=== PATIENT | female | born 1945 | race Caucasian/White ===

== ENCOUNTER 2022-03-21 15:17 | Emergency (ER) | payer MEDICARE, OTHER, SELFPAY ==
--- NOTE | ~2022-03-21 | XR_ITS ---
EXAMINATION: XR CHEST CLINICAL INFORMATION: Shortness of breath. COVID positive COMPARISON: CT 08/01/2014 TECHNIQUE: AP upright portable view of the chest was obtained. FINDINGS: No focal pneumonia. Normal lung volumes. Mild nonspecific bronchial wall thickening. Heart and mediastinum within normal limits with minor aortic ectasia and atherosclerotic disease. No pulmonary edema. Nonobstructive gas pattern. Postsurgical changes in the left chest wall with mastectomy for breast cancer. XR/XR chest 1V IMPRESSION: Minor bronchial wall thickening. No focal pneumonia.
[2022-03-21 15:21] VITALS: BP 151/67; PULSE 64; O2SAT 100
[2022-03-21 15:32] VITALS: BP 193/74; PULSE 55; RESP 16; TEMP 36.9; O2SAT 100; BMI 25.3
[2022-03-21 16:01] LABS: COVID-19 Test Negative (Negative); IDNOW Serial# 16C4AD1C
--- NOTE | 2022-03-21 16:21 | ED.GENADULT ---
HPI - General Adult General Chief complaint: General Medical Stated complaint: WEAKNESS, COVID + Time Seen by Provider: 03/21/22 16:09 Source: patient and family Mode of arrival: ambulatory Limitations: no limitations History of Present Illness HPI narrative: 76-year-old female with several days worth of feeling generally weak. Believes that she has COVID. Patient states she has been unable to eat or drink anything for the past several days including medications. She denies any fevers or chills. The patient does state that her daughter and son-in-law had COVID and she was with them last weekend. She denies chest pain, cough, wheezing or any other specific complaints. Onset (ago): day(s) Severity: moderate Related Data Home Medications Medication Instructions Recorded Confirmed amlodipine 10 mg tablet 1 tab PO DAILY 03/22/22 atorvastatin 40 mg tablet 1 tab PO DAILY 03/22/22 gabapentin 300 mg capsule 1 cap PO TID 03/22/22 insulin aspart U-100 100 unit/mL subcut 03/22/22 subcutaneous solution (Novolog U-100 Insulin aspart) insulin glargine 100 unit/mL unit subcut 03/22/22 subcutaneous solution (Lantus U-100 Insulin) lisinopril 40 mg tablet 1 tab PO DAILY 03/22/22 trazodone 150 mg tablet 1 tab PO BEDTIME 03/22/22 Allergies Allergy/AdvReac Type Severity Reaction Status Date / Time influenza virus vaccine, Allergy Unknown PASSED OUT Unverified 01/12/20 14:44 specific [Influenza Virus Vacc,Specific] Penicillins [PENICILLINS] Allergy Unknown TURNED RED Unverified 01/12/20 14:44 A BEAT eggs Allergy Unknown Fainting Uncoded 03/21/22 15:37 Penicillin Allergy Unknown Redness of Uncoded 03/21/22 15:37 Skin Review of Systems Constitutional: Constitutional: Reports anorexia, Denies chills, Denies fever(s) and Reports weakness Eyes: Eyes: Denies diplopia and Denies eye discharge ENT: Reports system reviewed and no additional complaints, except as documented, Denies nasal congestion and Denies sore throat Cardiovascular: Cardiovascular: Denies syncope, Denies Loss of Consciousness, Denies palpitations and Denies dyspnea Respiratory: Respiratory: Reports no additional respiratory complaints and Denies dyspnea Gastrointestinal: Gastrointestinal: Reports no additional gastrointestinal complaints, Reports nausea and Denies vomiting Genitourinary: Genitourinary: Reports no additional female genitourinary complaints Musculoskeletal: Musculoskeletal: Reports no additional musculoskeletal complaints Integumentary/Breasts: Skin/Breast: Reports system reviewed and no additional complaints, except as docu and Denies jaundice Neurologic: Denies Abnormal speech present, Denies syncope, Denies Sensory deficit (Neuro) and Reports weakness Endocrine: Endocrine: Denies palpitations [facility] Past Medical History Attestation statement: The following information was validated with the patient. [facility] Narrative: Diabetes Source: old records reviewed and nursing notes reviewed Social History Social History Advance Directives: Yes Advance Directives Information Provided: No Advance Directives on File: No Physical Exam ED Vital Signs: Vital Signs - 24 hr 03/21/22 15:32 03/21/22 20:27 03/21/22 23:46 Temperature 98.4 F 98.6 F 98.0 F Pulse Rate 55 60 85 Respiratory Rate 16 16 Blood Pressure 193/74 H 164/52 H 167/70 H Pulse Oximetry 100 95 96 Oxygen Delivery Method Room Air Room Air Room Air 03/22/22 00:38 03/22/22 02:14 03/22/22 04:10 Temperature 97.2 F 98.0 F 970 F H Pulse Rate 59 68 71 Respiratory Rate 14 17 16 Blood Pressure 121/69 131/76 124/69 Pulse Oximetry 96 95 95 Oxygen Delivery Method Room Air Room Air Room Air BMI result Body Mass Index 25.3 Vital signs noted. Pulse oximeter is normal. Afebrile. Const General: cooperative, comfortable, alert, awake and in distress mild; No diaphoretic Nutritional Appearance: average body habitus Orientation/consciousness: patient oriented x3 Limitations: no limitations [facility] Head: Yes normal to inspection, Yes normocephalic and Yes atraumatic Ears: hearing grossly normal bilaterally General nose exam: Normal external nose present Face and sinus: Yes normal facial exam Mouth: Normal oral and palatal mucosa present Eyes General: appearance normal, both eyes and all related structures Conjunctivae: conjunctivae normal Sclerae: sclerae normal Pupils: Equal, round and reactive pupils present EOM: EOMs intact bilaterally Neck Neck: Yes normal visual inspection and Yes full ROM Resp Effort & Inspection: normal respiratory effort, normal respiratory pattern and no cough Cardio Rate: regular rate Rhythm: regular rhythm GI Inspection: Yes normal to inspection, No Abdominal wall edema and No distended Palpation (GI): not soft and nontender Back/Spine/Pelvis Cervical Spine: normal cervical lordosis and cervical ROM normal Skin General skin exam: no rashes or lesions noted, no jaundice and no pallor Neuro General: patient oriented x3 and CN's II-XI intact bilaterally Cranial nerves: Yes Equal, round and reactive pupils present Cognition (Neuro): normal cognition Speech: No Abnormal speech present Motor exam (neuro): 5/5 motor strength present throughout Sensory Exam: No Sensory deficit (Neuro) Medications Administered Discontinued Medications Generic Name Dose Route Start Last Admin Trade Name Freq PRN Reason Stop Dose Admin Sodium Chloride 1,000 mls @ 1,000 mls/hr 03/21/22 16:21 03/21/22 23:24 Ns IV 03/21/22 17:20 Infused .Q1H ONE Infusion Ondansetron HCl 4 mg 03/21/22 16:49 03/21/22 17:35 Ondansetron Hcl 4 Mg/2 Ml Vial IVPUSH 03/21/22 16:50 4 mg ONCE ONE Administration Medical Decision Making MDM Narrative Medical decision making narrative: 76-year-old female presenting with generalized weakness. The patient states she has been nauseous. Laboratory studies were performed all of which are documented below. The patient was given IV fluids, and nausea medication. She continues to feel weak. There does not appear to be any cause for admission at this time, however, the patient is 76 and is weak, so will be observed overnight in the emergency department and have a case management and physical therapy evaluation in the morning to determine whether she is safe to go home. Lab Data Lab results narrative: The patient is slightly anemic although may be normal for her age, no old values for are available for comparison. Additionally, the patient has a slightly decreased white count, possibly secondary to viral infection. COVID testing was negative Result diagrams: 03/21/22 17:06 03/21/22 17:06 Labs: Lab Results 03/21/22 03/21/22 03/21/22 Range/Units 15:39 17:06 17:06 WBC 2.2 L (4.8-10.8) X10*3/uL RBC 3.81 L (4.20-5.50) X10*6/uL Hgb 11.3 L (12.0-16.0) g/dl Hct 32.0 L (37.0-47.0) % MCV 84.0 (80.0-98.0) fL MCH 29.7 (27.0-33.0) pg MCHC 35.3 H (31.0-35.0) g/dl RDW 12.1 (11.0-16.0) % Plt Count 157 L (160-400) X10*3/uL MPV 11.1 (9.4-12.3) fL Immature Gran % (Auto) 0.5 H (0.0-0.4) % Neut % (Auto) 49.5 (45-73) % Lymph % (Auto) 33.0 (20-40) % [place] % (Auto) 15.6 H (2-11) % Eos % (Auto) 0.5 (0-4) % Baso % (Auto) 0.9 (0-2) % Lymph # (Auto) 0.7 L (1.2-4.9) X10*3/uL [place] # (Auto) 0.3 (0.1-1.2) X10*3/uL Eos # (Auto) 0.0 (0.0-0.4) X10*3/uL Baso # (Auto) 0.0 (0.0-0.2) X10*3/uL Abs Immat Gran (auto) 0.01 (0.00-0.03) X10*3/uL Absolute Neuts (auto) 1.1 L (2.0-8.3) x10*3/uL Absolute Nucleated RBC 0.000 (0.0-0.012) X10*3/uL Nucleated RBC % (auto) 0.0 (0.0-0.2) /100WBC Smear Tech's Comments VERIFIED Sodium 137 (135-145) mmol/L Potassium 4.2 (3.3-5.1) mmol/L Chloride 102 (96-108) mmol/L Carbon Dioxide 25 (22-29) mmol/L Anion Gap 14 (12-20) BUN 20 H (9-16) mg/dL Creatinine 1.18 (0.5-1.4) mg/dL Estim Creat Clear Calc 40.4 Estimated GFR 44 Random Glucose 215 H (60-115) mg/dL Calcium 8.6 (8.4-10.2) mg/dL COVID-19 ([facility]) Negative (Negative) COVID-19 Clin Com See Note Imaging Data Chest x-ray: Radiologist's impression: Minimal bronchial thickening, no acute infiltrates Discharge Plan Discharge Clinical Impression: Weakness Patient Disposition: Still a Patient Prescriptions: No Action atorvastatin 40 mg tablet 1 tab PO DAILY insulin glargine [Lantus U-100 Insulin] 100 unit/mL solution subcut amlodipine 10 mg tablet 1 tab PO DAILY insulin aspart U-100 [Novolog U-100 Insulin aspart] 100 unit/mL solution subcut trazodone 150 mg tablet 1 tab PO BEDTIME gabapentin 300 mg capsule 1 cap PO TID lisinopril 40 mg tablet 1 tab PO DAILY
[2022-03-21 17:31] LABS: Anion Gap 14 (12-20); Blood Urea Nitrogen 20 mg/dL (9-16); Calcium 8.6 mg/dL (8.4-10.2); Carbon Dioxide 25 mmol/L (22-29); Chloride 102 mmol/L (96-108); Creatinine Clr Calc Pharmacy 40.4; Estimated Glomerular Filt Rate 44; Glucose Random 215 mg/dL (60-115); Potassium 4.2 mmol/L (3.3-5.1); Sodium 137 mmol/L (135-145)
[2022-03-21] MEDS: ondansetron HCL 4 MG/2 ML VIAL IVPUSH (17:35)
[2022-03-21] MEDS: 0.9 % Sodium Chloride 1,000 ML 1000 ML IV (17:36)
--- NOTE | 2022-03-21 17:36 | PC.NURSE ---
Normal Saline 0.9% would not scan. Unknown reason. NS 0.9% infusing as ordered in [facility].
[2022-03-21 17:38] LABS: Basophils Percent Auto 0.9 % (0-2); Eosinophils Percent Auto 0.5 % (0-4); Hemoglobin 11.3 g/dl (12.0-16.0); Imm Gran Abs Auto 0.01 X10*3/uL (0.00-0.03); Imm Gran Pct Auto 0.5 % (0.0-0.4); Lymphocytes Absolute Auto 0.7 X10*3/uL (1.2-4.9); MANUAL DIFF FLAG SCAN; Mean Corpuscular HGB Conc 35.3 g/dl (31.0-35.0); Mean Corpuscular Hemoglobin 29.7 pg (27.0-33.0); Mean Platelet Volume 11.1 fL (9.4-12.3); Monocytes Absolute Auto 0.3 X10*3/uL (0.1-1.2); Monocytes Percent Auto 15.6 % (2-11); Neutrophils Absolute Auto 1.1 x10*3/uL (2.0-8.3); Neutrophils Percent Auto 49.5 % (45-73); Platelet Count 157 X10*3/uL (160-400); Red Blood Count 3.81 X10*6/uL (4.20-5.50); Red Cell Distribution Width 12.1 % (11.0-16.0); SCAN SMEAR FLAG 1
[2022-03-21 17:40] LABS: White Blood Count 2.2 X10*3/uL (4.8-10.8)
[2022-03-21 17:57] LABS: SLIDE REVIEW VERIFIED
[2022-03-21 20:27] VITALS: BP 164/52; PULSE 60; TEMP 37; O2SAT 95
[2022-03-21 23:46] VITALS: BP 167/70; PULSE 85; RESP 16; TEMP 36.7; O2SAT 96
[2022-03-22 00:38] VITALS: BP 121/69; PULSE 59; RESP 14; TEMP 36.2; O2SAT 96
[2022-03-22 02:14] VITALS: BP 131/76; PULSE 68; RESP 17; TEMP 36.7; O2SAT 95
[2022-03-22 04:10] VITALS: BP 124/69; PULSE 71; RESP 16; TEMP 521.1; TEMP 970; O2SAT 95
--- NOTE | 2022-03-22 07:44 | PC.NURSE ---
pt is sitting up eating breakfast rn aware
--- NOTE | 2022-03-22 08:13 | PC.NURSE ---
spoke with pts daughter who reports she and her normally keep an eye on her mother. pts daughter reports that she and her are currently covid + and it would be hard for them to go care for the pt. Daughter (Zaida) [phone]
[2022-03-22 08:32] VITALS: TEMP 36.1
[2022-03-22 09:03] VITALS: BP 124/69; PULSE 71; O2SAT 95
--- NOTE | 2022-03-22 09:11 | PHA.MEDREC ---
Pharmacy Consult ? Medication Reconciliation Pharmacy has completed the medication reconciliation. Patient was able to confirm medications based on claim history but she states she has not taken her medications at home in over a week because she's been sick. She also has not used her insulin in this time period according to her.
[2022-03-22 10:27] LABS: Influenza A PCR NEGATIVE (Negative); Influenza B PCR NEGATIVE (Negative); Resp Syncy Virus RNA Qual PCR NEGATIVE (Negative); SARS COV2 PCR INHOUSE POSITIVE (Negative)
--- NOTE | 2022-03-22 11:04 | MHC.CM.ED ---
Received case management consult overnight. Patient came to the ER due to weakness from Covid. Work up negative except for positive Covid. Physical therapy eval completed. No therapies indicated at this time. Met with patient in regards to discharge planning. Patient lives alone, ambulates independently and had no services prior to coming to the hospital. PCP is at [facility]. Patient feels she can safely return home, even though her family has Covid and will not be able to help her at home. Spoke with patient's daughter, Zaida via telephone at [phone]. Physical therapy findings and clinical findings explained. Also explained patient feels she can safely return home. Zaida requesting patient be sent home with antiemetic due to nausea/vomiting. Joselyn HERRERA aware. Patient appeared short of breath. Faustina MORGAN has been asked to check patient's O2 sat. If normal, anticipate patient will return home via BLS. Ezra, head gauge unit operator has Med [facility] and will book BLS when reeady for discharge. Continue to monitor for d/c needs.
[2022-03-22 11:08] VITALS: BP 194/72; PULSE 61; RESP 18; O2SAT 96
== END 2022-03-22 11:46 | disposition home or self-care (01) ==
PROVIDERS: Emergency Provider Emergency Medicine; PCP Internal Medicine
DX: U07.1 COVID-19 (principal); R53.1 Weakness; Z79.4 Long term (current) use of insulin; Z79.02 Long term (current) use of antithrombotics/antiplatelets; Z79.899 Other long term (current) drug therapy
CPT/HCPCS: 0241U; 36415; 71045; 80048; 85025; 87635; 96361; 96374; 97161; 99284; 99285; J2405

== ENCOUNTER 2023-04-18 08:08 | Emergency (ER) | payer MEDICARE, OTHER, SELFPAY ==
[2023-04-18 08:16] VITALS: BP 138/68; BP 155/61; PULSE 58; PULSE 63; RESP 16; TEMP 36.9; O2SAT 100; BMI 25.2
[2023-04-18 08:28] LABS: Glucose, Whole Blood 302 mg/dL (60-115)
--- NOTE | 2023-04-18 08:33 | ED_ITS ---
HPI - General Adult General Chief complaint: General Medical Stated complaint: HYPERGLYCEMIA Time Seen by Provider: 04/18/23 08:13 Source: patient, family and EMS Mode of arrival: EMS Limitations: no limitations History of Present Illness HPI narrative: 77-year-old female with a history of insulin-dependent diabetes, hypertension, hyperlipidemia presents to the ER with poor p.o. intake, no appetite, refusing to take home medications since yesterday morning. Per partner at the bedside the patient has a history of doing this. This is the anniversary of her 1st 's and she has some depression. She is not currently taking any medications for depression. She has in the past but is unsure if this was helpful. She does not have a therapist. She has had one in the past. She denies any SI or HI. Related Data Home Medications Medication Instructions Recorded Confirmed amlodipine 10 mg tablet 10 mg PO DAILY 03/22/22 03/22/22 ascorbic acid (vitamin C) 500 mg 500 mg PO DAILY 03/22/22 03/22/22 tablet (Vitamin C) atorvastatin 40 mg tablet 40 mg PO DAILY 03/22/22 03/22/22 cholecalciferol (vitamin D3) 25 25 mcg PO DAILY 03/22/22 03/22/22 mcg (1,000 unit) capsule (Vitamin D3) gabapentin 300 mg capsule 900 mg PO BEDTIME 03/22/22 03/22/22 insulin aspart U-100 100 unit/mL 1 sliding scale dose subcut TID 03/22/22 03/22/22 subcutaneous solution (Novolog U-100 Insulin aspart) insulin glargine 100 unit/mL 18 unit subcut BEDTIME 03/22/22 03/22/22 subcutaneous solution (Lantus U-100 Insulin) lisinopril 40 mg tablet 40 mg PO DAILY 03/22/22 03/22/22 trazodone 150 mg tablet 150 mg PO BEDTIME 03/22/22 03/22/22 vitamin E 268 mg (400 unit) capsule 268 mg PO DAILY 03/22/22 03/22/22 Previous Rx's Medication Instructions Recorded ondansetron 4 mg disintegrating 4 mg PO Q8H 3 days #9 tabs 03/22/22 tablet Allergies Allergy/AdvReac Type Severity Reaction Status Date / Time influenza virus vaccine, Allergy Unknown PASSED OUT Unverified 01/12/20 14:44 specific [Influenza Virus Vacc,Specific] Penicillins [PENICILLINS] Allergy Unknown TURNED RED Unverified 01/12/20 14:44 A BEAT eggs Allergy Unknown Fainting Uncoded 03/21/22 15:37 Penicillin Allergy Unknown Redness of Uncoded 03/21/22 15:37 Skin Review of Systems 2 Review of Systems: Yes all other systems are reviewed and are negative Constitutional: Constitutional: Reports no additional constitutional complaints, Denies body ache(s), Denies chills, Denies fever(s), Denies headache(s), Reports poor appetite and Denies weakness Eyes: Eyes: Reports no additional eye complaints and Denies change in vision ENT: Reports system reviewed and no additional complaints, except as documented, Denies dizziness, Denies headache(s), Denies nasal congestion, Denies nasal discharge and Denies neck pain Cardiovascular: Cardiovascular: Reports no additional cardiovascular complaints, Denies chest pain, Denies leg edema and Denies dyspnea Respiratory: Respiratory: Reports no additional respiratory complaints, Denies cough and Denies dyspnea Gastrointestinal: Gastrointestinal: Reports no additional gastrointestinal complaints, Denies abdominal pain, Denies diarrhea, Denies nausea and Denies vomiting Genitourinary: Genitourinary: Reports no additional female genitourinary complaints and Denies urinary incontinence Musculoskeletal: Musculoskeletal: Reports no additional musculoskeletal complaints, Denies back pain, Denies arthralgias, Denies joint swelling, Denies neck pain, Denies numbness and Denies tingling Integumentary/Breasts: Skin/Breast: Reports system reviewed and no additional complaints, except as docu and Denies rash Neurologic: Reports system reviewed and no additional complaints, except as documented, Denies Abnormal speech present, Denies dizziness, Denies headache(s), Denies numbness, Denies tingling and Denies weakness Psychiatric: Psychiatric: Reports depression, Denies homicidal ideation and Denies suicidal ideation [facility] Past Medical History Attestation statement: The following information was validated with the patient. Source: old records reviewed Social History Social History Smoked in Last 30 Days: No Use of substances other than those prescribed or required for medical reasons: No Advance Directives: No Advance Directives Information Provided: No Physical Exam ED Vital Signs: Vital Signs - 24 hr 04/18/23 08:16 04/18/23 11:27 04/18/23 14:08 Temperature 98.4 F 97.8 F 98.1 F Pulse Rate 58 58 64 Respiratory Rate 16 20 14 Blood Pressure 155/61 H 126/63 144/65 H Pulse Oximetry 100 99 98 Oxygen Delivery Method Room Air Room Air Room Air BMI result Body Mass Index 25.2 Const Other: Tearful, flat affect General: alert Orientation/consciousness: patient oriented x3 Limitations: no limitations HENMT Head: Yes normal to inspection Ears: hearing grossly normal bilaterally General nose exam: Normal external nose present Face and sinus: Yes normal facial exam Mouth: Normal oral and palatal mucosa present Throat: Yes posterior oropharynx normal Eyes General: appearance normal, both eyes and all related structures Pupils: Equal, round and reactive pupils present Neck Neck: Yes normal visual inspection Chest Chest palpation & inspection: normal inspection of the chest Resp Effort & Inspection: normal respiratory effort Auscultation: clear to auscultation bilaterally Cardio Rate: regular rate Rhythm: regular rhythm Peripheral pulses: Peripheral pulses 2+ throughout GI Inspection: Yes normal to inspection Palpation (GI): Soft to palpation and nontender Auscultation: normal bowel sounds Back/Spine/Pelvis Thoracic/Lumbar Spine: thoracic and lumbar spine normal to inspection Skin General skin exam: no rashes or lesions noted Neuro General: patient oriented x3, no focal motor deficits and normal sensation to monofilament Cranial nerves: Yes Equal, round and reactive pupils present Cognition (Neuro): normal cognition Speech: No Abnormal speech present Gait exam (Neuro): Normal gait present Motor exam (neuro): 5/5 motor strength present throughout Extrem General: Yes normal to inspection Course Course Course Narrative: 2124-Labs show mild SOLITARIO, hyperglycemia. Will give 1 L IVF, SQ insulin Reevaluation(s) Reevaluation #1: 1045-Will repeat BMP. SOLITARIO likely pre-renal. Patient did take some PO while in the ER. At this time she is medically cleared for crisis consultation. Reevaluation #2: 1430-repeat BMP improving. Patient can continue to orally rehydrate. I did speak to the patient and her . Unfortunately the care team is not available to see her until 21:00 tonight. The patient is not suicidal. There are no safety concerns from family. She is agreeing to take all of her home medications at home. Family feels comfortable going home with outpatient resources and will return with her there are any safety concerns. Medications Administered Discontinued Medications Generic Name Dose Route Start Last Admin Trade Name Mary Beth PRN Reason Stop Dose Admin Sodium Chloride 1,000 mls @ 999 mls/hr 04/18/23 09:22 04/18/23 10:29 Ns IV 04/18/23 10:22 1,000 mls/hr .Q1H1M STA Infusion Insulin Human Lispro 8 unit 04/18/23 09:23 04/18/23 09:31 Insulin Lispro 100 Unit/Ml 3 Ml Vial SUBCUT 04/18/23 09:24 8 unit ONCE ONE Administration Ondansetron HCl 4 mg 04/18/23 13:10 04/18/23 13:29 Ondansetron Odt 4 Mg Tab.Rapdis TRANSLINGU 04/18/23 13:11 4 mg ONCE ONE Administration Medical Decision Making Medical Decision Making [facility] Narrative: 77-year-old female with a history of insulin-dependent diabetes, hypertension, hyperlipidemia presents to the ER with poor p.o. intake, no appetite, refusing to take home medications since yesterday morning.? Per partner at the bedside the patient has a history of doing this.? This is the anniversary of her 1st 's and she has some depression.? She is not currently taking any medications for depression.? She has in the past but is unsure if this was helpful.? She does not have a therapist.? She has had one in the past.? She denies any SI or HI. Tearful, flat affect POC is 302. Will obtain labs, UA, COVID screen. Will need crisis consultation Differential Diagnosis Differential Diagnoses: The differential diagnosis associated with the presentation includes Depression, non med compliant Admission/Observation Consideration of admission/observation: Escalation of care including admission/observation considered There is no SI or HI or safety concerns from family that I believe necessitates a section 12 or an inpatient psych admission. Lab Data [facility] Lab Attestation statement: I reviewed the patient's lab results. 04/18/23 08:42 04/18/23 10:48 Labs: Lab Results 04/18/23 04/18/23 04/18/23 Range/Units 08:24 08:42 10:29 WBC 4.0 L (4.8-10.8) X10*3/uL RBC 4.51 (4.20-5.50) X10*6/uL Hgb 13.5 (12.0-16.0) g/dl Hct 40.5 D (37.0-47.0) % MCV 89.8 (80.0-98.0) fL MCH 29.9 (27.0-33.0) pg MCHC 33.3 (31.0-35.0) g/dl RDW 12.6 (11.0-16.0) % Plt Count 232 D (160-400) X10*3/uL MPV 11.1 (9.4-12.3) fL Immature Gran % (Auto) 0.2 (0.0-0.4) % Neut % (Auto) 64.7 (45-73) % Lymph % (Auto) 21.2 (20-40) % [place] % (Auto) 10.2 (2-11) % Eos % (Auto) 2.7 (0-4) % Baso % (Auto) 1.0 (0-2) % Lymph # (Auto) 0.9 L (1.2-4.9) X10*3/uL [place] # (Auto) 0.4 (0.1-1.2) X10*3/uL Eos # (Auto) 0.1 (0.0-0.4) X10*3/uL Baso # (Auto) 0.0 (0.0-0.2) X10*3/uL Abs Immat Gran (auto) 0.01 (0.00-0.03) X10*3/uL Absolute Neuts (auto) 2.6 (2.0-8.3) x10*3/uL Absolute Nucleated RBC 0.000 (0.0-0.012) X10*3/uL Nucleated RBC % (auto) 0.0 (0.0-0.2) /100WBC Sodium 140 (135-145) mmol/L Potassium 3.8 (3.3-5.1) mmol/L Chloride 105 (96-108) mmol/L Carbon Dioxide 24 (22-29) mmol/L Anion Gap 15 (12-20) BUN 32 H (9-16) mg/dL Creatinine 1.79 H (0.5-1.4) mg/dL Estim Creat Clear Calc 24.2 Estimated GFR 27 POC Glucose 302 H (60-115) mg/dL Random Glucose 336 H (60-115) mg/dL Calcium 10.2 D (8.4-10.2) mg/dL Urine Color Yellow Urine Appearance Clear Urine pH 8.5 (5.0-9.0) Ur Specific [place] 1.020 (1.005-1.025) Urine Protein Negative (Neg-Trace) mg/dL Urine Glucose (UA) >=1000 H (Negative) mg/dL Urine Ketones Negative (Negative) mg/dL Urine Blood Negative (Negative) Urine Nitrite Negative (Negative) Ur Leukocyte Esterase Negative (Negative) Urine RBC 0-2 (0-2) /HPF Urine WBC 0-5 (0-5) /HPF Ur Squamous Epith Cells 0-2 (0-2) /HPF Urine Bacteria None Seen (None Seen) Hyaline Casts 0-2 (0-2) /LPF Salicylates < 5.0 L (15-30) mg/dL Urine Opiates Screen Not Detected (Not Detect) Urine Fentanyl Screen Not Detected (Not Detect) Acetaminophen < 3 (<30) mcg/mL Ur Barbiturates Screen Not Detected (Not Detect) Ur Phencyclidine Scrn Not Detected (Not Detect) Ur Amphetamines Screen Not Detected (Not Detect) U Benzodiazepines Scrn Not Detected (Not Detect) Urine Cocaine Screen Not Detected (Not Detect) U Marijuana (THC) Screen Not Detected (Not Detect) Ethyl Alcohol < 10 mg/dL COVID-19 ([facility]) Negative (Negative) COVID-19 Clin Com See Note 04/18/23 Range/Units 10:48 WBC (4.8-10.8) X10*3/uL RBC (4.20-5.50) X10*6/uL Hgb (12.0-16.0) g/dl Hct (37.0-47.0) % MCV (80.0-98.0) fL MCH (27.0-33.0) pg MCHC (31.0-35.0) g/dl RDW (11.0-16.0) % Plt Count (160-400) X10*3/uL MPV (9.4-12.3) fL Immature Gran % (Auto) (0.0-0.4) % Neut % (Auto) (45-73) % Lymph % (Auto) (20-40) % [place] % (Auto) (2-11) % Eos % (Auto) (0-4) % Baso % (Auto) (0-2) % Lymph # (Auto) (1.2-4.9) X10*3/uL [place] # (Auto) (0.1-1.2) X10*3/uL Eos # (Auto) (0.0-0.4) X10*3/uL Baso # (Auto) (0.0-0.2) X10*3/uL Abs Immat Gran (auto) (0.00-0.03) X10*3/uL Absolute Neuts (auto) (2.0-8.3) x10*3/uL Absolute Nucleated RBC (0.0-0.012) X10*3/uL Nucleated RBC % (auto) (0.0-0.2) /100WBC Sodium 141 (135-145) mmol/L Potassium 3.6 (3.3-5.1) mmol/L Chloride 108 (96-108) mmol/L Carbon Dioxide 24 (22-29) mmol/L Anion Gap 13 (12-20) BUN 29 H (9-16) mg/dL Creatinine 1.60 H (0.5-1.4) mg/dL Estim Creat Clear Calc 27.1 Estimated GFR 31 POC Glucose (60-115) mg/dL Random Glucose 250 H (60-115) mg/dL Calcium 9.4 D (8.4-10.2) mg/dL Urine Color Urine Appearance Urine pH (5.0-9.0) Ur Specific [place] (1.005-1.025) Urine Protein (Neg-Trace) mg/dL Urine Glucose (UA) (Negative) mg/dL Urine Ketones (Negative) mg/dL Urine Blood (Negative) Urine Nitrite (Negative) Ur Leukocyte Esterase (Negative) Urine RBC (0-2) /HPF Urine WBC (0-5) /HPF Ur Squamous Epith Cells (0-2) /HPF Urine Bacteria (None Seen) Hyaline Casts (0-2) /LPF Salicylates (15-30) mg/dL Urine Opiates Screen (Not Detect) Urine Fentanyl Screen (Not Detect) Acetaminophen (<30) mcg/mL Ur Barbiturates Screen (Not Detect) Ur Phencyclidine Scrn (Not Detect) Ur Amphetamines Screen (Not Detect) U Benzodiazepines Scrn (Not Detect) Urine Cocaine Screen (Not Detect) U Marijuana (THC) Screen (Not Detect) Ethyl Alcohol mg/dL COVID-19 ([facility]) (Negative) COVID-19 Clin Com Independent Historian Clinical information obtained from an independent historian. History obtained from or confirmed by: Spouse and EMS Received 500 mL of normal saline from EMS prior to arrival Discharge Plan Discharge Clinical Impression: Acute hyperglycemia, Mild dehydration, Depression Patient Disposition: Still a Patient Instructions: Depression (ED), Diabetic Hyperglycemia (ED) Additional Instructions: See the resources provided by the care team Take your medications and do not miss any doses. Please return for any safety concerns as discussed. Prescriptions: No Action atorvastatin 40 mg tablet 40 mg PO DAILY insulin glargine [Lantus U-100 Insulin] 100 unit/mL solution 18 unit subcut BEDTIME amlodipine 10 mg tablet 10 mg PO DAILY insulin aspart U-100 [Novolog U-100 Insulin aspart] 100 unit/mL solution 1 sliding scale dose subcut TID Protocol: Insulin Correction Scale Less than or equal to 110 ---- Give (units): 0 111 to 150 Give (units): 0 151 to 200 Give (units): 2 201 to 250 Give (units): 4 251 to 300 Give (units): 6 301 to 350 Give (units): 8 Greater than 350 Give (units): 10 Call MD if Blood Glucose > : 350 trazodone 150 mg tablet 150 mg PO BEDTIME gabapentin 300 mg capsule 900 mg PO BEDTIME lisinopril 40 mg tablet 40 mg PO DAILY ascorbic acid (vitamin C) [Vitamin C] 500 mg Tablet 500 mg PO DAILY cholecalciferol (vitamin D3) [Vitamin D3] 25 mcg (1,000 unit) Capsule 25 mcg PO DAILY vitamin E 268 mg (400 unit) Capsule 268 mg PO DAILY ondansetron 4 mg tablet,disintegrating 4 mg PO Q8H 3 Days Qty: 9 0RF Referrals: Derrick Hutton MD [Primary Care Provider] - 1 week
[2023-04-18 08:46] LABS: MANUAL DIFF FLAG NO
[2023-04-18 08:50] LABS: Eosinophils Absolute Auto 0.1 X10*3/uL (0.0-0.4); Eosinophils Percent Auto 2.7 % (0-4); Hematocrit 40.5 % (37.0-47.0); Hemoglobin 13.5 g/dl (12.0-16.0); Imm Gran Abs Auto 0.01 X10*3/uL (0.00-0.03); Imm Gran Pct Auto 0.2 % (0.0-0.4); Lymphocytes Absolute Auto 0.9 X10*3/uL (1.2-4.9); Lymphocytes Percent Auto 21.2 % (20-40); Mean Corpuscular HGB Conc 33.3 g/dl (31.0-35.0); Mean Corpuscular Hemoglobin 29.9 pg (27.0-33.0); Mean Corpuscular Volume 89.8 fL (80.0-98.0); Mean Platelet Volume 11.1 fL (9.4-12.3); Monocytes Absolute Auto 0.4 X10*3/uL (0.1-1.2); Monocytes Percent Auto 10.2 % (2-11); Neutrophils Absolute Auto 2.6 x10*3/uL (2.0-8.3); Neutrophils Percent Auto 64.7 % (45-73); Platelet Count 232 X10*3/uL (160-400); Red Blood Count 4.51 X10*6/uL (4.20-5.50); Red Cell Distribution Width 12.6 % (11.0-16.0)
[2023-04-18 09:11] LABS: Acetaminophen LAB < 3 mcg/mL (<30); Anion Gap 15 (12-20); Blood Urea Nitrogen 32 mg/dL (9-16); Calcium 10.2 mg/dL (8.4-10.2); Carbon Dioxide 24 mmol/L (22-29); Chloride 105 mmol/L (96-108); Creatinine Clr Calc Pharmacy 24.2; Estimated Glomerular Filt Rate 27; Ethanol < 10 mg/dL; Glucose Random 336 mg/dL (60-115); Potassium 3.8 mmol/L (3.3-5.1); Salicylate < 5.0 mg/dL (15-30); Sodium 140 mmol/L (135-145)
[2023-04-18 09:14] LABS: COVID-19 Test Negative (Negative); IDNOW Serial# 08D9AD1C
[2023-04-18] MEDS: Insulin Lispro 100 UNIT/ML 3 ML VIAL 8 UNIT SUBCUT (09:31)
[2023-04-18] MEDS: 0.9 % Sodium Chloride 1,000 ML 999 ML IV (09:32)
[2023-04-18 10:37] LABS: Appearance Urine Clear; Color Urine Yellow; Glucose Urine UA >=1000 mg/dL (Negative); Leukocyte Esterase Urine Negative (Negative); Nitrite Urine Negative (Negative); PH 8.5 (5.0-9.0); UMIC TRIGGER UACC YES; Urine Blood Negative (Negative); Urine Ketones Negative (Negative); Urine Protein Negative (Neg-Trace)
[2023-04-18 10:42] LABS: Amphetamine Screen Urine Not Detected (Not Detect); Bacteria Urine None Seen (None Seen); Barbiturates, Urine Not Detected (Not Detect); Benzodiazepines Screen Urine Not Detected (Not Detect); Cannabinoid Screen Urine Not Detected (Not Detect); Cocaine Screen Urine Not Detected (Not Detect); Fentanyl, urine Not Detected (Not Detect); Hyaline Casts Urine 0-2 /LPF (0-2); Opiate Screen Urine Not Detected (Not Detect); Phencyclidine Screen Urine Not Detected (Not Detect); RBC Urine 0-2 /HPF (0-2); Squamous Epithelial Cell Urine 0-2 /HPF (0-2); WBC Urine 0-5 /HPF (0-5)
[2023-04-18 11:05] LABS: Anion Gap 13 (12-20); Blood Urea Nitrogen 29 mg/dL (9-16); Calcium 9.4 mg/dL (8.4-10.2); Carbon Dioxide 24 mmol/L (22-29); Chloride 108 mmol/L (96-108); Creatinine Clr Calc Pharmacy 27.1; Estimated Glomerular Filt Rate 31; Glucose Random 250 mg/dL (60-115); Potassium 3.6 mmol/L (3.3-5.1); Sodium 141 mmol/L (135-145)
[2023-04-18 11:27] VITALS: BP 126/63; PULSE 58; RESP 20; TEMP 36.6; O2SAT 99
[2023-04-18] MEDS: Ondansetron ODT 4 MG TAB.RAPDIS TRANSLINGU (13:29)
[2023-04-18 14:08] VITALS: BP 144/65; PULSE 64; RESP 14; TEMP 36.7; O2SAT 98
--- NOTE | 2023-04-18 14:20 | PC.NURSE ---
patient's nausea is better after taking the zofran. I spoke to care team and no one able to see her until 9pm when Landon comes in. patient does not want to wait; she took meds for her depression many years ago and no longer takes them. I will let provider know
== END 2023-04-18 14:57 | disposition still patient (30) ==
PROVIDERS: Nurse Practitioner Family; Emergency Provider Student in an Organized Health Care Education/Training Program; PCP Internal Medicine
DX: E11.65 Type 2 diabetes mellitus with hyperglycemia (principal); E86.0 Dehydration; R11.2 Nausea with vomiting, unspecified; I10 Essential (primary) hypertension; F33.1 Major depressive disorder, recurrent, moderate; Z11.52 Encounter for screening for COVID-19; Z20.822 Contact with and (suspected) exposure to COVID-19; Z79.899 Other long term (current) drug therapy
CPT/HCPCS: 36415; 80048; 80143; 80179; 80307; 81001; 82947; 85025; 87635; 96360; 99284

== ENCOUNTER 2023-07-17 13:12 | Emergency (ER) | payer MEDICARE, OTHER, SELFPAY ==
[2023-07-17 13:15] VITALS: BP 160/67; PULSE 70; RESP 14; TEMP 36.8; O2SAT 98; BMI 25.8
--- NOTE | 2023-07-17 13:15 | ED_ITS ---
HPI - Dizziness General Chief Complaint: Dizziness Stated Complaint: Dizzy Needs Evaluation Per Dr Time Seen by Provider: 07/17/23 17:51 Source: patient and family Mode of arrival: ambulatory Limitations: no limitations History of Present Illness HPI Narrative: 77-year-old female with a past medical history of diabetes presents to the emergency department with her , for complaints dizziness over the past 1- 2 weeks. She states that she recently began taking Farxiga and that is symptoms of dizziness began roughly 1 week after beginning the medication. She reports she feels as if the room is spinning causing difficulty with ambulation at balance. She denies noting any falls or traumas. She reports she contacted her primary care provider earlier today who recommended that she present to the emergency department for evaluation. She also reports intermittent nausea secondary to suggest. She denies any fevers, chills, headache, vision changes, weakness, paresthesias, chest pain, shortness of breath, abdominal pain Pertinent positives and negatives discussed in HPI Related Data Home Medications Medication Instructions Recorded Confirmed amlodipine 10 mg tablet 10 mg PO DAILY 03/22/22 03/22/22 ascorbic acid (vitamin C) 500 mg 500 mg PO DAILY 03/22/22 03/22/22 tablet (Vitamin C) atorvastatin 40 mg tablet 40 mg PO DAILY 03/22/22 03/22/22 cholecalciferol (vitamin D3) 25 25 mcg PO DAILY 03/22/22 03/22/22 mcg (1,000 unit) capsule (Vitamin D3) gabapentin 300 mg capsule 900 mg PO BEDTIME 03/22/22 03/22/22 insulin aspart U-100 100 unit/mL 1 sliding scale dose subcut TID 03/22/22 03/22/22 subcutaneous solution (Novolog U-100 Insulin aspart) insulin glargine 100 unit/mL 18 unit subcut BEDTIME 03/22/22 03/22/22 subcutaneous solution (Lantus U-100 Insulin) lisinopril 40 mg tablet 40 mg PO DAILY 03/22/22 03/22/22 trazodone 150 mg tablet 150 mg PO BEDTIME 03/22/22 03/22/22 vitamin E 268 mg (400 unit) capsule 268 mg PO DAILY 03/22/22 03/22/22 Previous Rx's Medication Instructions Recorded ondansetron 4 mg disintegrating 4 mg PO Q8H 3 days #9 tabs 03/22/22 tablet meclizine 12.5 mg tablet 12.5 mg PO TID PRN dizziness #30 07/17/23 tabs Allergies Allergy/AdvReac Type Severity Reaction Status Date / Time influenza virus vaccine, Allergy Unknown PASSED OUT Unverified 01/12/20 14:44 specific [Influenza Virus Vacc,Specific] Penicillins [PENICILLINS] Allergy Unknown TURNED RED Unverified 01/12/20 14:44 A BEAT eggs Allergy Unknown Fainting Uncoded 03/21/22 15:37 Penicillin Allergy Unknown Redness of Uncoded 03/21/22 15:37 Skin Review of Systems 2 Review of Systems: Yes all other systems are reviewed and are negative [facility] Social History Social History Advance Directives: No Advance Directives Information Provided: No Physical Exam 2 Vital Signs: Vital Signs: Last Vital Signs Temp 98.6 F 07/17/23 18:54 Pulse 62 07/17/23 18:54 Resp 14 07/17/23 18:54 BP 186/62 H 07/17/23 18:54 Pulse Ox 100 07/17/23 18:54 O2 Del Method Room Air 07/17/23 18:54 BMI result Body Mass Index 25.8 NIH Stroke Scale Internal: Initial- Upon Arrival Time: 13:30 Level of Consciousness: Alert Level of Consciousness Questions: Answers both questions correctly Level of Consciousness Commands: Performs both tasks correctly Best Gaze: Normal Visual: No visual loss Facial Palsy: Normal Motor Arm (Right): No drift Motor Arm (Left): No drift Motor Leg (Right): No drift Motor Leg (Left): No drift Limb Ataxia: Absent Sensory: Normal Best Language: No aphasia Dysarthia: Normal Extinction and Inattention: No abnormality Score: 0 Course Course Course Narrative: This is a rapid medical exam: Additional HPI, ROS, PE not included below will be deferred to primary provider. Complaints of dizziness for the past 2 weeks with nausea today. Recently prescribed farxiga and became dizzy one week after starting med. Feels as if the room is spinning causing difficulty with ambulation as she has been 'bouncing' around the room Medical Decision Making Medical Decision Making MDM Narrative: Old records reviewed for previous imaging, lab studies, ECGs, and notes. Patient was assessed the emergency department with no acute distress or toxicity noted. Blood work unremarkable showing no evidence of leukocytosis, anemia, thrombocytopenia, or electrolyte imbalance. Stable CKD noted with elevated BUN and creatinine, however; improved from last blood work done on 04/18/2023. Patient with elevated blood glucose, in the setting of known diabetes, of 267. On reassessment, patient noted to be walking with stable gait and answering questions appropriately. Meclizine sent to patient's preferred pharmacy for further management dizziness. Patient educated discontinue Farxiga and follow- up with the primary care provider on Thursday as she may be having a medication reaction. Patient states that she also manages her diabetes with insulin and I recommended that she continue doing so. Patient is safe for discharge at this time with plan for [id number] Tylenol and/or NSAID such as ibuprofen or naproxen for fever/discomfort with dosing as per packaging. HPI, PE, diagnostics, and plan discussed with patient and family with no unanswered questions at this time. Strict return precautions given to return to the emergency department with new, worsening, or concerning emergent symptoms. Recommended to follow-up with there primary care provider in 24-48 hours for further treatment and management. Differential Diagnosis Differential Diagnoses: The differential diagnosis associated with the presentation includes But not limited to ACS, PE, CVA, sepsis, malignancy, hyperglycemia, Lab Data 07/17/23 13:35 07/17/23 13:35 Labs: Lab Results 07/17/23 Range/Units 13:35 WBC 6.5 (4.8-10.8) X10*3/uL RBC 4.38 (4.20-5.50) X10*6/uL Hgb 12.9 (12.0-16.0) g/dl Hct 37.8 (37.0-47.0) % MCV 86.3 (80.0-98.0) fL MCH 29.5 (27.0-33.0) pg MCHC 34.1 (31.0-35.0) g/dl RDW 12.7 (11.0-16.0) % Plt Count 249 (160-400) X10*3/uL MPV 11.0 (9.4-12.3) fL Immature Gran % (Auto) 0.2 (0.0-0.4) % Neut % (Auto) 63.1 (45-73) % Lymph % (Auto) 23.8 (20-40) % [place] % (Auto) 9.6 (2-11) % Eos % (Auto) 2.5 (0-4) % Baso % (Auto) 0.8 (0-2) % Lymph # (Auto) 1.5 (1.2-4.9) X10*3/uL [place] # (Auto) 0.6 (0.1-1.2) X10*3/uL Eos # (Auto) 0.2 (0.0-0.4) X10*3/uL Baso # (Auto) 0.1 (0.0-0.2) X10*3/uL Abs Immat Gran (auto) 0.01 (0.00-0.03) X10*3/uL Absolute Neuts (auto) 4.1 (2.0-8.3) x10*3/uL Absolute Nucleated RBC 0.000 (0.0-0.012) X10*3/uL Nucleated RBC % (auto) 0.0 (0.0-0.2) /100WBC Sodium 140 (135-145) mmol/L Potassium 4.7 (3.3-5.1) mmol/L Chloride 103 (96-108) mmol/L Carbon Dioxide 28 (22-29) mmol/L Anion Gap 14 (12-20) BUN 20 H (9-16) mg/dL Creatinine 1.56 H (0.5-1.4) mg/dL Estim Creat Clear Calc 29.2 Estimated GFR 32 Random Glucose 267 H (60-115) mg/dL Calcium 10.2 D (8.4-10.2) mg/dL Total Bilirubin 0.5 (0.0-1.0) mg/dL AST 15 (5-31) U/L ALT 13 (0-31) U/L Alkaline Phosphatase 74 (39-117) U/L Troponin I High Sens < 2.7 (<3.5-17.0) ng/L Total Protein 7.0 (6.5-8.0) g/dL Albumin 4.2 (3.5-5.0) g/dL Discharge Plan Discharge Clinical Impression: Dizziness Patient Disposition: Home, Self-Care Prescriptions: New meclizine 12.5 mg tablet 12.5 mg PO TID PRN (Reason: dizziness) Qty: 30 0RF No Action atorvastatin 40 mg tablet 40 mg PO DAILY insulin glargine [Lantus U-100 Insulin] 100 unit/mL solution 18 unit subcut BEDTIME amlodipine 10 mg tablet 10 mg PO DAILY insulin aspart U-100 [Novolog U-100 Insulin aspart] 100 unit/mL solution 1 sliding scale dose subcut TID Protocol: Insulin Correction Scale Less than or equal to 110 ---- Give (units): 0 111 to 150 Give (units): 0 151 to 200 Give (units): 2 201 to 250 Give (units): 4 251 to 300 Give (units): 6 301 to 350 Give (units): 8 Greater than 350 Give (units): 10 Call MD if Blood Glucose > : 350 trazodone 150 mg tablet 150 mg PO BEDTIME gabapentin 300 mg capsule 900 mg PO BEDTIME lisinopril 40 mg tablet 40 mg PO DAILY ascorbic acid (vitamin C) [Vitamin C] 500 mg Tablet 500 mg PO DAILY cholecalciferol (vitamin D3) [Vitamin D3] 25 mcg (1,000 unit) Capsule 25 mcg PO DAILY vitamin E 268 mg (400 unit) Capsule 268 mg PO DAILY ondansetron 4 mg tablet,disintegrating 4 mg PO Q8H 3 Days Qty: 9 0RF Interventions: ED Discharge Assessment Last Done: 07/17/23 18:54
--- NOTE | 2023-07-17 13:19 | ECG_ITS ---
Test Reason : dizziness Blood Pressure : / mmHG Vent. Rate : 062 BPM Atrial Rate : 062 BPM P-R Int : 158 ms QRS Dur : 092 ms QT Int : 432 ms P-R-T Axes : 010 -48 062 degrees QTc Int : 438 ms Normal sinus rhythm Left anterior fascicular block Minimal voltage criteria for LVH, may be normal variant ( Jas product ) Abnormal ECG When compared with ECG of 07-JAN-2012 14:36, No significant change was found Referred By: Miroslava Perez Electronically Signed By:YARELIS GUZMAN
[2023-07-17 13:43] LABS: MANUAL DIFF FLAG NO
[2023-07-17 13:44] LABS: Basophils Absolute Auto 0.1 X10*3/uL (0.0-0.2); Basophils Percent Auto 0.8 % (0-2); Eosinophils Absolute Auto 0.2 X10*3/uL (0.0-0.4); Eosinophils Percent Auto 2.5 % (0-4); Hematocrit 37.8 % (37.0-47.0); Hemoglobin 12.9 g/dl (12.0-16.0); Imm Gran Abs Auto 0.01 X10*3/uL (0.00-0.03); Imm Gran Pct Auto 0.2 % (0.0-0.4); Lymphocytes Absolute Auto 1.5 X10*3/uL (1.2-4.9); Lymphocytes Percent Auto 23.8 % (20-40); Mean Corpuscular HGB Conc 34.1 g/dl (31.0-35.0); Mean Corpuscular Hemoglobin 29.5 pg (27.0-33.0); Mean Corpuscular Volume 86.3 fL (80.0-98.0); Monocytes Absolute Auto 0.6 X10*3/uL (0.1-1.2); Monocytes Percent Auto 9.6 % (2-11); Neutrophils Absolute Auto 4.1 x10*3/uL (2.0-8.3); Neutrophils Percent Auto 63.1 % (45-73); Platelet Count 249 X10*3/uL (160-400); Red Blood Count 4.38 X10*6/uL (4.20-5.50); Red Cell Distribution Width 12.7 % (11.0-16.0); White Blood Count 6.5 X10*3/uL (4.8-10.8)
[2023-07-17 13:58] LABS: Alanine Aminotransferase 13 U/L (0-31); Albumin Level 4.2 g/dL (3.5-5.0); Alkaline Phosphatase 74 U/L (39-117); Anion Gap 14 (12-20); Aspartate Amino Transferase 15 U/L (5-31); Bilirubin Total 0.5 mg/dL (0.0-1.0); Blood Urea Nitrogen 20 mg/dL (9-16); Calcium 10.2 mg/dL (8.4-10.2); Carbon Dioxide 28 mmol/L (22-29); Chloride 103 mmol/L (96-108); Creatinine Clr Calc Pharmacy 29.2; Estimated Glomerular Filt Rate 32; Glucose Random 267 mg/dL (60-115); Potassium 4.7 mmol/L (3.3-5.1); Sodium 140 mmol/L (135-145)
[2023-07-17 14:07] LABS: Troponin-I High Sensitivity < 2.7 ng/L (<3.5-17.0)
[2023-07-17 18:54] VITALS: BP 186/62; PULSE 62; RESP 14; TEMP 37; O2SAT 100
== END 2023-07-17 19:42 | disposition home or self-care (01) ==
LOC: HO.ED 19:01
PROVIDERS: Nurse Practitioner Family; Emergency Provider Emergency Medicine; PCP Internal Medicine
DX: R42 Dizziness and giddiness (principal); E11.9 Type 2 diabetes mellitus without complications; Z79.4 Long term (current) use of insulin
CPT/HCPCS: 36415; 80053; 84484; 85025; 93005; 99283

== ENCOUNTER → 2023-07-17 13:19 | Outpatient (BNV) | payer MEDICARE, MEDICAID, SELFPAY | PROVIDERS: Emergency Provider Emergency Medicine; PCP Internal Medicine; Visit Provider Internal Medicine | DX: R94.31 Abnormal electrocardiogram [ECG] [EKG] (principal) | CPT/HCPCS: 93010 ==

== ENCOUNTER 2023-08-12 14:15 | Outpatient (AMB) | payer MEDICARE, MEDICAID, SELFPAY ==
[2023-08-12 14:22] VITALS: BP 160/60; PULSE 65; O2SAT 97; BMI 27.4
--- NOTE | 2023-08-12 14:22 | HO.NEPHOV ---
HPI HPI Comments History of Present Illness Details I had the privilege of seeing Bea in consultation for SOLITARIO, CKD, hypertension, pedal edema and proteinuria. She is 77 years of age and has longstanding diabetes with proliferative diabetic retinopathy, neuropathy and proteinuria. Her blood sugar control had not been optimal. She is hypertensive and is on multiple antihypertensive medications. She had been having edema and was treated with hydrochlorothiazide as well as Lasix quite recently. Her serum creatinine has gone up and her diuretics were discontinued. She was started on Farxiga which she had not tolerate well and she stopped taking it. She has history of breast cancer and had undergone surgery long time ago. She has no weight loss, hematuria, shortness of breath, paroxysmal nocturnal dyspnea, orthopnea, orthostatic symptoms. She has no new skin rashes, photosensitivity, epistaxis, recurrent sinusitis, recent sore throat, history of recent new antibiotic intake or excessive anti-inflammatories. She has no history of any hearing deficits. She takes vitamin-C every day. She is concerned about her recent fluctuation in her serum creatinine. She was accompanied by her partner Daniel during this visit. [facility] Medical History (Updated 08/13/23 @ 07:31 by Aj Todd MD) Psoriasis Peripheral neuropathy Mastodynia Hypertension Hypercholesterolemia Diabetes mellitus Diabetic retinopathy Chronic renal insufficiency Cataract Breast cancer Surgical History (Updated 08/11/23 @ 15:24 by Chantal Cotton MA) History of modified radical mastectomy of left breast H/O colonoscopy Vital Signs 08/12/23 14:22 Height 5 ft 5 in Weight 164 lb 6 oz BMI 27.4 BP 160/60 H Blood Pressure Location Rt brachial Position Sitting Pulse 65 Pulse Source Pulse Oximeter Pulse Oximetry (%) 97 Oxygen Delivery Method Room Air Physical Exam Vital Signs: Last Vital Signs Pulse 65 08/12/23 14:22 BP 160/60 H 08/12/23 14:22 Pulse Ox 97 08/12/23 14:22 Oxygen Delivery Method Room Air 08/12/23 14:22 BMI result Body Mass Index 27.4 Const General: comfortable and no acute distress Orientation/consciousness: patient oriented x3 HEENT Head: Yes normocephalic Mouth: Normal oral and palatal mucosa present Eyes EOM: EOMs intact bilaterally Neck Neck: Yes supple Resp Auscultation: clear to auscultation bilaterally Cardio Jugular venous distension: no JVD Rate: regular rate GI Palpation (GI): Soft to palpation Auscultation: normal bowel sounds General: Yes no CVA tenderness Back/Spine/Pelvis Back: no CVA tenderness Skin General skin exam: no rashes or lesions noted Neuro General: patient oriented x3 and moves all extremities Assessment & Plan Assessment & Plan (1) SOLITARIO (acute kidney injury): Code(s): N17.9 - Acute kidney failure, unspecified (2) CKD stage 3 secondary to diabetes: Code(s): E11.22 - Type 2 diabetes mellitus with diabetic chronic kidney disease; N18.30 - Chronic kidney disease, stage 3 unspecified (3) Hypertension: Code(s): I10 - Essential (primary) hypertension Qualifiers: Hypertension type: primary hypertension Qualified Code(s): I10 - Essential (primary) hypertension (4) Proteinuria: Code(s): R80.9 - Proteinuria, unspecified Qualifiers: Proteinuria type: other Qualified Code(s): R80.8 - Other proteinuria (5) Edema: Code(s): R60.9 - Edema, unspecified Qualifiers: Edema type: localized Qualified Code(s): R60.0 - Localized edema Plan Bea had SOLITARIO most likely due to reduced renal perfusion due to excessive diuretics while she was taking YANI inhibitor. She would have had altered autoregulation of the kidney with the development of tubular injury. Her diuretics have been discontinued and serum creatinine is marginally better. She is known to have proteinuria likely from diabetic nephropathy given she has proliferative retinopathy, neuropathy and suboptimally controlled diabetes. She was started on Farxiga which she had discontinued. I shall consider reintroducing low-dose Jardiance or Farxiga at next visit with me. She has not known to have any renal stones and does not have any flank pain. There is no recent suspect any obstructive uropathy, new acute glomerular or interstitial pathology causing her SOLITARIO. I have ordered renal imaging studies to look at the structure of her kidney and renal vasculature. Her edema most likely is in combination due to proteinuria and intake of amlodipine. She should cut back salt in the diet. I have ordered extensive workup. I intend to take her off amlodipine altogether with time when I have more data. I asked her to cut back on her vitamin C intake. If her serum creatinine does not settled to baseline quickly, I may reduce her YANI inhibitor to accelerate the recovery. She has an echocardiogram ordered by her primary care physician. I doubt there is any cardiac etiology causing her edema. I will consider doing a renal biopsy, if indicated, based on evolving data. All these have been explained in detail with the patient and her partner. Answered all questions. Follow-up appointment given. Orders: Orders Blood Urea Nitrogen 08/12/23 N17.9 - Acute kidney failure, unspecified Calcium 08/12/23 N17.9 - Acute kidney failure, unspecified Hepatitis B Surface Antigen 08/12/23 N17.9 - Acute kidney failure, unspecified Hepatitis B Core Antibody 08/12/23 N17.9 - Acute kidney failure, unspecified Anti DNA DS Antibody 08/12/23 N17.9 - Acute kidney failure, unspecified Neutrophil Cytoplasma Ab 08/12/23 N17.9 - Acute kidney failure, unspecified Proteinase 3 PR3 Antibodies 08/12/23 N1.9 - Acute kidney failure, unspecified Anti Glomerular Basement Memb 08/12/23 N17.9 - Acute kidney failure, unspecified Immunofixation Pnl, Serum 08/12/23 N17.9 - Acute kidney failure, unspecified US renal BI 08/12/23 N17.9 - Acute kidney failure, unspecified US renal doppler 08/12/23 N17.9 - Acute kidney failure, unspecified Hemoglobin A1c 08/12/23 N17.9 - Acute kidney failure, unspecified CK, Total+Isoenzymes, Serum 08/12/23 N17.9 - Acute kidney failure, unspecified UA and rflx microscopic 08/12/23 N17.9 - Acute kidney failure, unspecified Creatinine 08/12/23 N17.9 - Acute kidney failure, unspecified Electrolytes 08/12/23 N17.9 - Acute kidney failure, unspecified Myeloperoxidase Antibody 08/12/23 N17.9 - Acute kidney failure, unspecified Complement C4 08/12/23 N17.9 - Acute kidney failure, unspecified Complement C3 08/12/23 N17.9 - Acute kidney failure, unspecified Phospholipase A2 Receptor Pnl 08/12/23 N17.9 - Acute kidney failure, unspecified Protein Creatinine Ratio, Ur 08/12/23 N17.9 - Acute kidney failure, unspecified Medications: Discontinued ondansetron Discontinued Reason: Patient no longer taking 4 mg PO Q8H 3 days 9 tabs 0RF meclizine Discontinued Reason: Patient no longer taking 12.5 mg PO TID PRN 30 tabs 0RF dizziness Coding Level of Care Code New Pt Level 4 (93921) Diagnoses SOLITARIO (acute kidney injury) N17.9 CKD stage 3 secondary to diabetes E11.22; N18.30 Primary hypertension I10 Hypertension type: primary hypertension Other proteinuria R80.8 Proteinuria type: other Localized edema R60.0 Edema type: localized Results Reviewed Nephrology Results: Hgb 12.9 g/dl (12.0-16.0) 07/17/23 WBC 6.5 X10*3/uL (4.8-10.8) 07/17/23 Plt Count 249 X10*3/uL (160-400) 07/17/23 Sodium 140 mmol/L (135-145) 07/17/23 Potassium 4.7 mmol/L (3.3-5.1) 07/17/23 Chloride 103 mmol/L (96-108) 07/17/23 Carbon Dioxide 28 mmol/L (22-29) 07/17/23 BUN 20 mg/dL (9-16) H 07/17/23 Creatinine 1.56 mg/dL (0.5-1.4) H 07/17/23 Calcium 10.2 mg/dL (8.4-10.2) 07/17/23 Urine Protein Negative mg/dL (Neg-Trace) 04/18/23
== END 2023-08-12 15:19 | disposition home or self-care (01) ==
PROVIDERS: Visit Provider Internal Medicine Nephrology
DX: N17.9 Acute kidney failure, unspecified (principal); E11.22 Type 2 diabetes mellitus with diabetic chronic kidney disease; N18.30 Chronic kidney disease, stage 3 unspecified; I10 Essential (primary) hypertension; R80.8 Other proteinuria; R60.0 Localized edema
CPT/HCPCS: 99204

== ENCOUNTER → 2023-08-12 14:15 | Outpatient (BNVA) | payer MEDICARE, MEDICAID, SELFPAY | PROVIDERS: Visit Provider Internal Medicine Nephrology | DX: E11.22 Type 2 diabetes mellitus with diabetic chronic kidney disease (principal); I12.9 Hypertensive chronic kidney disease with stage 1 through stage 4 chronic kidney disease, or unspecified chronic kidney disease; N18.30 Chronic kidney disease, stage 3 unspecified; N17.9 Acute kidney failure, unspecified; R80.8 Other proteinuria; R60.0 Localized edema | CPT/HCPCS: 99202 ==

== ENCOUNTER 2023-08-17 07:36 | Outpatient (REF) | payer MEDICARE, MEDICAID, SELFPAY ==
--- NOTE | ~2023-08-17 | US_ITS ---
EXAMINATION: RENAL ARTERY DOPPLER ULTRASOUND CLINICAL INFORMATION: SOLITARIO COMPARISON: CT abdomen and pelvis July 29, 2014 TECHNIQUE: Renal ultrasound. Doppler ultrasound (spectral analysis and color Doppler) of the renal arteries and aorta were performed. FINDINGS: The right kidney measures 9.2 x 4.6 x 3.9 cm in sagittal, AP and transverse dimensions. The left kidney measures 12 x 4 x 5.7 cm in sagittal, AP and transverse dimensions. The kidneys show no masses, calculi or hydronephrosis. The corticomedullary differentiation is normal. RENAL ARTERY VELOCITIES: Right: Proximally: 142 cm/s. Mid: 98.4 cm/s. Distal: 99 cm/s. Left: Proximally: 117 cm/s. Mid: 160 cm/s. Distally: A cm/s. SEGMENTAL RESISTIVE INDICES: Right: Upper: 0.79 Mid: 0.82 Lower: 0.82 Left: Upper: 0.83 Mid: 0.78 Lower: 0.88 Mid aortic velocity: 98.5 cm/s. Renal Aortic Ratio: Right: 1.44 Left: 1.66 US/US renal doppler IMPRESSION: 1. The kidneys are normal in appearance. 2. There is no evidence of renal artery stenosis. 3. The resistive indices are borderline elevated bilaterally. Technologist: KASSANDRA
--- NOTE | ~2023-08-17 | US_ITS ---
EXAMINATION: RENAL ARTERY DOPPLER ULTRASOUND CLINICAL INFORMATION: SOLITARIO COMPARISON: CT abdomen and pelvis July 29, 2014 TECHNIQUE: Renal ultrasound. Doppler ultrasound (spectral analysis and color Doppler) of the renal arteries and aorta were performed. FINDINGS: The right kidney measures 9.2 x 4.6 x 3.9 cm in sagittal, AP and transverse dimensions. The left kidney measures 12 x 4 x 5.7 cm in sagittal, AP and transverse dimensions. The kidneys show no masses, calculi or hydronephrosis. The corticomedullary differentiation is normal. RENAL ARTERY VELOCITIES: Right: Proximally: 142 cm/s. Mid: 98.4 cm/s. Distal: 99 cm/s. Left: Proximally: 117 cm/s. Mid: 160 cm/s. Distally: A cm/s. SEGMENTAL RESISTIVE INDICES: Right: Upper: 0.79 Mid: 0.82 Lower: 0.82 Left: Upper: 0.83 Mid: 0.78 Lower: 0.88 Mid aortic velocity: 98.5 cm/s. Renal Aortic Ratio: Right: 1.44 Left: 1.66 US/US renal BI IMPRESSION: 1. The kidneys are normal in appearance. 2. There is no evidence of renal artery stenosis. 3. The resistive indices are borderline elevated bilaterally. Technologist: KASSANDRA
== END 2023-08-17 07:37 | disposition home or self-care (01) ==
LOC: HO.US 07:36
PROVIDERS: Visit Provider Internal Medicine Nephrology
DX: N17.9 Acute kidney failure, unspecified (principal)
CPT/HCPCS: 76775; 93975

== ENCOUNTER 2023-08-26 14:43 | Outpatient (REF) | payer MEDICARE, MEDICAID, SELFPAY ==
[2023-08-26 16:34] LABS: Appearance Urine Clear; Color Urine Yellow; Glucose Urine UA 100 mg/dL (Negative); Leukocyte Esterase Urine Small (1+) (Negative); Nitrite Urine Negative (Negative); Specific Gravity - Urine 1.015 (1.005-1.025); UMIC TRIGGER UA YES; Urine Blood Negative (Negative); Urine Ketones Negative (Negative); Urine Protein 100 (2+) mg/dL (Neg-Trace)
[2023-08-26 16:45] LABS: Anion Gap 13 (12-20); Blood Urea Nitrogen 19 mg/dL (9-16); Calcium 9.5 mg/dL (8.4-10.2); Carbon Dioxide 27 mmol/L (22-29); Chloride 102 mmol/L (96-108); Estimated Glomerular Filt Rate 37; Potassium 4.3 mmol/L (3.3-5.1); Sodium 138 mmol/L (135-145)
[2023-08-26 16:51] LABS: Estimated Average Glucose 209 mg/dL; Hemoglobin A1c % 8.9 % (<6.0)
[2023-08-26 16:53] LABS: Bacteria Urine None Seen (None Seen); Hyaline Casts Urine 0-2 /LPF (0-2); RBC Urine 0-2 /HPF (0-2); Squamous Epithelial Cell Urine 0-2 /HPF (0-2)
[2023-08-26 16:55] LABS: Creatinine Urine 76.55 mg/dL; Protein/Creatinine Ratio, Ur 1.23 (<0.2); Total Protein Urine Random 94 mg/dL (<12)
[2023-08-27 08:42] LABS: HBc Num1 0.15 S/CO (0.00-0.79); HBsAGNum1 0.31 S/CO (0.00-0.99); Hepatitis B Core Antibody Nonreactive (Nonreactive); Hepatitis B Surface Antigen Negative (Negative)
[2023-08-27 14:03] LABS: Neutrophil Cyto Ab Screen NEGATIVE (NEGATIVE)
[2023-08-27 14:09] LABS: Complement C3 87 mg/dL (83-193)
[2023-08-28 21:37] LABS: Anti DNA DS Antibody <1 IU/mL; Anti Glomerular Basement Memb <1.0 AI; Myeloperoxidase Antibody <1.0 AI; Proteinase 3 PR3 Antibodies <1.0 AI
[2023-08-28 23:08] LABS: IgA 149 mg/dL (70-320); IgG 853 mg/dL (600-1540); IgM 35 mg/dL (50-300)
[2023-08-30 21:48] LABS: CK-BB None Detected (None Detected); CK-MB 0 % (<5); CK-MM 100 % (95-100); Creatine Kinase,Total,Serum 84 U/L (29-143)
[2023-09-02 15:04] LABS: Phospholipase A2 IgG ELISA <4 RU/mL; Phospholipase A2 IgG IFA NEGATIVE (NEGATIVE)
== END 2023-08-26 14:44 | disposition home or self-care (01) ==
LOC: HO.HMGCLDS 14:43
PROVIDERS: Visit Provider Internal Medicine Nephrology
DX: N17.9 Acute kidney failure, unspecified (principal)
CPT/HCPCS: 36415; 80051; 81001; 82310; 82552; 82565; 82570; 82784; 83036; 83520; 84156; 84520; 86021; 86036; 86160; 86225; 86255; 86334; 86704; 87340

== ENCOUNTER 2023-09-09 14:16 | Outpatient (AMB) | payer MEDICARE, MEDICAID, SELFPAY ==
[2023-09-09 14:24] VITALS: BP 138/50; PULSE 68; O2SAT 97; BMI 27.2
--- NOTE | 2023-09-09 14:24 | HO.NEPHOV ---
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 She is 77 years of age and has longstanding diabetes with proliferative diabetic retinopathy, neuropathy and proteinuria. Her blood sugar control had not been optimal. She is hypertensive and is on multiple antihypertensive medications. She had been having edema and was treated with hydrochlorothiazide as well as Lasix quite recently. Her serum creatinine has gone up and her diuretics were discontinued. She was started on Farxiga which she had not tolerate well and she stopped taking it. She has history of breast cancer and had undergone surgery long time ago. She has no weight loss, hematuria, shortness of breath, paroxysmal nocturnal dyspnea, orthopnea, orthostatic symptoms. She has no new skin rashes, photosensitivity, epistaxis, recurrent sinusitis, recent sore throat, history of recent new antibiotic intake or excessive anti-inflammatories. She has no history of any hearing deficits. She takes vitamin-C every day. She is concerned about her recent fluctuation in her serum creatinine. She was accompanied by her partner Daniel during this visit. [facility] Medical History (Updated 08/13/23 @ 07:31 by Aj Todd MD) Psoriasis Peripheral neuropathy Mastodynia Hypertension Hypercholesterolemia Diabetes mellitus Diabetic retinopathy Chronic renal insufficiency Cataract Breast cancer Surgical History History of modified radical mastectomy of left breast H/O colonoscopy Social History (Updated 09/09/23 @ 14:26 by Chantal Cotton MA) Alcohol intake: never Patient Tobacco Use Status: Never used Tobacco Physical Exam Vital Signs: Last Vital Signs Pulse 68 09/09/23 14:24 BP 138/50 L 09/09/23 14:24 Pulse Ox 97 09/09/23 14:24 Oxygen Delivery Method Room Air 09/09/23 14:24 BMI result Body Mass Index 27.2 Const General: comfortable and no acute distress Orientation/consciousness: patient oriented x3 HEENT Head: Yes normocephalic Mouth: Normal oral and palatal mucosa present Eyes EOM: EOMs intact bilaterally Neck Neck: Yes supple Resp Auscultation: clear to auscultation bilaterally Cardio Jugular venous distension: no JVD Rate: regular rate GI Palpation (GI): Soft to palpation Auscultation: normal bowel sounds General: Yes no CVA tenderness Back/Spine/Pelvis Back: no CVA tenderness Skin General skin exam: no rashes or lesions noted Neuro General: patient oriented x3 and moves all extremities Extrem General: Yes edema Results Reviewed Nephrology Results: Hgb 12.9 g/dl (12.0-16.0) 07/17/23 WBC 6.5 X10*3/uL (4.8-10.8) 07/17/23 Plt Count 249 X10*3/uL (160-400) 07/17/23 Sodium 138 mmol/L (135-145) 08/26/23 Potassium 4.3 mmol/L (3.3-5.1) 08/26/23 Chloride 102 mmol/L (96-108) 08/26/23 Carbon Dioxide 27 mmol/L (22-29) 08/26/23 BUN 19 mg/dL (9-16) H 08/26/23 Creatinine 1.38 mg/dL (0.5-1.4) 08/26/23 Calcium 9.5 mg/dL (8.4-10.2) 08/26/23 Urine Protein 100 (2+) mg/dL (Neg-Trace) H 08/26/23 Urine Creatinine 76.55 mg/dL 08/26/23 Protein/Creatinin Ratio 1.23 (<0.2) H 08/26/23 Renal US 08/17/23 Assessment & Plan Assessment & Plan (1) CKD stage 3 secondary to diabetes: Code(s): E11.22 - Type 2 diabetes mellitus with diabetic chronic kidney disease; N18.30 - Chronic kidney disease, stage 3 unspecified Category: Medical (2) Hypertension: Code(s): I10 - Essential (primary) hypertension Category: Medical Qualifiers: Hypertension type: primary hypertension Qualified Code(s): I10 - Essential (primary) hypertension (3) Proteinuria: Code(s): R80.9 - Proteinuria, unspecified Category: Medical Qualifiers: Proteinuria type: other Qualified Code(s): R80.8 - Other proteinuria (4) Edema: Code(s): R60.9 - Edema, unspecified Category: Medical Qualifiers: Edema type: localized Qualified Code(s): R60.0 - Localized edema Mirna Figueredo had SOLITARIO most likely due to reduced renal perfusion due to excessive diuretics while she was taking YANI inhibitor which has been resolved. She has proteinuria from diabetic nephropathy given she has proliferative retinopathy, neuropathy and suboptimally controlled diabetes. I started her on 10 mg Jardiance today. Her renal imaging was unremarkable . Her edema most likely is in combination due to proteinuria and intake of amlodipine. I discontinued her Amlodipine and gave her lasix 20 mg daily for 10 days. She should cut back salt in the diet. Given I D/Jair her Amlodipine, I started her on Carvedilol which we may have to increase the dose to get the BP to goal. She has an echocardiogram ordered by her primary care physician. I doubt there is any cardiac etiology causing her edema. I will consider doing a renal biopsy, if indicated, based on evolving data. All these have been explained in detail with the patient and her partner. Answered all questions. Follow-up appointment given. Orders: Orders Blood Urea Nitrogen Today E11.22 - Type 2 diabetes mellitus with diabetic chronic kidney disease, I10 - Essential (primary) hypertension, N18.30 - Chronic kidney disease, stage 3 unspecified, R60.0 - Localized edema, R80.8 - Other proteinuria Electrolytes Today E11.22 - Type 2 diabetes mellitus with diabetic chronic kidney disease, I10 - Essential (primary) hypertension, N18.30 - Chronic kidney disease, stage 3 unspecified, R60.0 - Localized edema, R80.8 - Other proteinuria Creatinine Today E11.22 - Type 2 diabetes mellitus with diabetic chronic kidney disease, I10 - Essential (primary) hypertension, N18.30 - Chronic kidney disease, stage 3 unspecified, R60.0 - Localized edema, R80.8 - Other proteinuria Medications: New carvedilol must administer with a meal/food 6.25 mg PO BID 30 days 60 tabs 3RF furosemide (Lasix) 20 mg PO DAILY 10 tabs 0RF empagliflozin (Jardiance) 10 mg PO DAILY 30 tabs 6RF Coding Level of Care Code Est Pt Level 4 (42330) Diagnoses CKD stage 3 secondary to diabetes E11.22; N18.30 Primary hypertension I10 Hypertension type: primary hypertension Other proteinuria R80.8 Proteinuria type: other Localized edema R60.0 Edema type: localized
== END 2023-09-09 15:12 | disposition home or self-care (01) ==
PROVIDERS: Visit Provider Internal Medicine Nephrology
DX: E11.22 Type 2 diabetes mellitus with diabetic chronic kidney disease (principal); N18.30 Chronic kidney disease, stage 3 unspecified; I10 Essential (primary) hypertension; R80.8 Other proteinuria; R60.0 Localized edema
CPT/HCPCS: 99214

== ENCOUNTER → 2023-09-09 14:16 | Outpatient (BNVA) | payer MEDICARE, MEDICAID, SELFPAY | PROVIDERS: Visit Provider Internal Medicine Nephrology | DX: E11.22 Type 2 diabetes mellitus with diabetic chronic kidney disease (principal); I12.9 Hypertensive chronic kidney disease with stage 1 through stage 4 chronic kidney disease, or unspecified chronic kidney disease; N18.30 Chronic kidney disease, stage 3 unspecified; R80.8 Other proteinuria; R60.0 Localized edema | CPT/HCPCS: 99212 ==

== ENCOUNTER 2023-11-03 14:06 | Outpatient (REF) | payer MEDICARE, MEDICAID, SELFPAY ==
[2023-11-03 16:25] LABS: Anion Gap 11 (12-20); Blood Urea Nitrogen 19 mg/dL (9-16); Carbon Dioxide 27 mmol/L (22-29); Chloride 104 mmol/L (96-108); Estimated Glomerular Filt Rate 41; Potassium 4.3 mmol/L (3.3-5.1); Sodium 138 mmol/L (135-145)
== END 2023-11-03 14:07 | disposition home or self-care (01) ==
LOC: HO.HMGCLDS 14:06
PROVIDERS: Visit Provider Internal Medicine Nephrology
DX: R60.0 Localized edema (principal); R80.8 Other proteinuria; I10 Essential (primary) hypertension; E11.22 Type 2 diabetes mellitus with diabetic chronic kidney disease; N18.30 Chronic kidney disease, stage 3 unspecified
CPT/HCPCS: 36415; 80051; 82565; 84520

== ENCOUNTER 2023-11-13 13:27 | Outpatient (AMB) | payer MEDICARE, MEDICAID, SELFPAY ==
--- NOTE | 2023-11-13 13:53 | HO.NEPHOV_ITS ---
Vital Signs 11/13/23 13:54 Height 5 ft 5 in Weight 163 lb BMI 27.1 BP 124/78 Blood Pressure Location Lt brachial Position Sitting Pulse 54 Pulse Source Pulse Oximeter Pulse Oximetry (%) 98 Oxygen Delivery Method Room Air Intake Visit Reasons: CKD/ 2 MO FU/ Conf Processing Specialist Required: No Accompanied by: Spouse Allergies influenza virus vaccine, specific [Influenza Virus Vacc,Specific] Allergy (Unknown, Verified 11/13/23 13:56) PASSED OUT Penicillins [PENICILLINS] Allergy (Unknown, Verified 11/13/23 13:56) TURNED RED A BEAT eggs Allergy (Unknown, Uncoded 03/21/22 15:37) Fainting Penicillin Allergy (Unknown, Uncoded 03/21/22 15:37) Redness of Skin HPI Comments Details: I had the privilege of seeing Bea in follow up for her CKD, hypertension, pedal edema and proteinuria. She is 78 years of age and has longstanding diabetes with proliferative diabetic retinopathy, neuropathy and proteinuria. Her blood sugar control had not been optimal. She is hypertensive and is on multiple antihypertensive medications. She has history of breast cancer and had undergone surgery long time ago. She has no weight loss, hematuria, shortness of breath, paroxysmal nocturnal dyspnea, orthopnea, orthostatic symptoms. She has no new skin rashes, photosensitivity, epistaxis, recurrent sinusitis, recent sore throat, history of recent new antibiotic intake or excessive anti- inflammatories. She has no history of any hearing deficits. She takes vitamin- C every day. She was accompanied by her partner Daniel during this visit. [facility] Medical History (Updated 08/13/23 @ 07:31 by Aj Todd MD) Psoriasis Peripheral neuropathy Mastodynia Hypertension Hypercholesterolemia Diabetes mellitus Diabetic retinopathy Chronic renal insufficiency Cataract Breast cancer Surgical History History of modified radical mastectomy of left breast H/O colonoscopy Social History Alcohol intake: never Patient Tobacco Use Status: Never used Tobacco Physical Exam Vital Signs: BMI result Body Mass Index 27.1 Const General: comfortable and no acute distress Orientation/consciousness: patient oriented x3 HEENT Head: Yes normocephalic Mouth: Normal oral and palatal mucosa present Eyes EOM: EOMs intact bilaterally Neck Neck: Yes supple Resp Auscultation: clear to auscultation bilaterally Cardio Jugular venous distension: no JVD Rate: regular rate GI Palpation (GI): Soft to palpation Auscultation: normal bowel sounds General: Yes no CVA tenderness Back/Spine/Pelvis Back: no CVA tenderness Skin General skin exam: no rashes or lesions noted Neuro General: patient oriented x3 and moves all extremities Extrem General: Yes no pedal edema Results Reviewed Nephrology Results: Hgb 12.9 g/dl (12.0-16.0) 07/17/23 WBC 6.5 X10*3/uL (4.8-10.8) 07/17/23 Plt Count 249 X10*3/uL (160-400) 07/17/23 Sodium 138 mmol/L (135-145) 11/03/23 Potassium 4.3 mmol/L (3.3-5.1) 11/03/23 Chloride 104 mmol/L (96-108) 11/03/23 Carbon Dioxide 27 mmol/L (22-29) 11/03/23 BUN 19 mg/dL (9-16) H 11/03/23 Creatinine 1.27 mg/dL (0.5-1.4) 11/03/23 Calcium 9.5 mg/dL (8.4-10.2) 08/26/23 Urine Protein 100 (2+) mg/dL (Neg-Trace) H 08/26/23 Urine Creatinine 76.55 mg/dL 08/26/23 Protein/Creatinin Ratio 1.23 (<0.2) H 08/26/23 Renal US 08/17/23 Assessment & Plan Assessment & Plan (1) CKD stage 3 secondary to diabetes: Code(s): E11.22 - Type 2 diabetes mellitus with diabetic chronic kidney disease; N18.30 - Chronic kidney disease, stage 3 unspecified Category: Medical (2) Hypertension: Code(s): I10 - Essential (primary) hypertension Category: Medical Qualifiers: Hypertension type: primary hypertension Qualified Code(s): I10 - Essential (primary) hypertension (3) Proteinuria: Code(s): R80.9 - Proteinuria, unspecified Category: Medical Qualifiers: Proteinuria type: other Qualified Code(s): R80.8 - Other proteinuria Plan Bea has proteinuria from diabetic nephropathy given she has proliferative retinopathy, neuropathy and suboptimally controlled diabetes. She is on 10 mg Jardiance today. Her renal imaging was unremarkable. She still has edema. I started her on lasix 40 mg daily . She should cut back salt in the diet. Her BP is at goal. I will consider doing a renal biopsy, if indicated, based on evolving data. All these have been explained in detail with the patient and her partner. Answered all questions. Follow-up appointment given. Orders: Orders Creatinine 6 Weeks E11.22 - Type 2 diabetes mellitus with diabetic chronic kidney disease, I10 - Essential (primary) hypertension, N18.30 - Chronic kidney disease, stage 3 unspecified, R80.8 - Other proteinuria Electrolytes 6 Weeks E11.22 - Type 2 diabetes mellitus with diabetic chronic kidney disease, I10 - Essential (primary) hypertension, N18.30 - Chronic kidney disease, stage 3 unspecified, R80.8 - Other proteinuria Protein Creatinine Ratio, Ur 3 Months E11.22 - Type 2 diabetes mellitus with diabetic chronic kidney disease, I10 - Essential (primary) hypertension, N18.30 - Chronic kidney disease, stage 3 unspecified, R80.8 - Other proteinuria Blood Urea Nitrogen 6 Weeks E11.22 - Type 2 diabetes mellitus with diabetic chronic kidney disease, I10 - Essential (primary) hypertension, N18.30 - Chronic kidney disease, stage 3 unspecified, R80.8 - Other proteinuria Creatinine 3 Months E11.22 - Type 2 diabetes mellitus with diabetic chronic kidney disease, I10 - Essential (primary) hypertension, N18.30 - Chronic kidney disease, stage 3 unspecified, R80.8 - Other proteinuria Blood Urea Nitrogen 3 Months E11.22 - Type 2 diabetes mellitus with diabetic chronic kidney disease, I10 - Essential (primary) hypertension, N18.30 - Chronic kidney disease, stage 3 unspecified, R80.8 - Other proteinuria Electrolytes 3 Months E11.22 - Type 2 diabetes mellitus with diabetic chronic kidney disease, I10 - Essential (primary) hypertension, N18.30 - Chronic kidney disease, stage 3 unspecified, R80.8 - Other proteinuria Medications: New furosemide 40 mg PO DAILY 30 days 30 tabs 4RF Coding Level of Care Code Est Pt Level 4 (10521) Diagnoses CKD stage 3 secondary to diabetes E11.22; N18.30 Primary hypertension I10 Hypertension type: primary hypertension Other proteinuria R80.8 Proteinuria type: other
[2023-11-13 13:54] VITALS: BP 124/78; PULSE 54; O2SAT 98; BMI 27.1
== END 2023-11-13 14:19 | disposition home or self-care (01) ==
PROVIDERS: Visit Provider Internal Medicine Nephrology
DX: E11.22 Type 2 diabetes mellitus with diabetic chronic kidney disease (principal); N18.30 Chronic kidney disease, stage 3 unspecified; I10 Essential (primary) hypertension; R80.8 Other proteinuria
CPT/HCPCS: 99214

== ENCOUNTER → 2023-11-13 13:27 | Outpatient (BNVA) | payer MEDICARE, MEDICAID, SELFPAY | PROVIDERS: Visit Provider Internal Medicine Nephrology | DX: I12.9 Hypertensive chronic kidney disease with stage 1 through stage 4 chronic kidney disease, or unspecified chronic kidney disease (principal); E11.22 Type 2 diabetes mellitus with diabetic chronic kidney disease; N18.30 Chronic kidney disease, stage 3 unspecified; R80.8 Other proteinuria; Z79.899 Other long term (current) drug therapy | CPT/HCPCS: 99212 ==

== ENCOUNTER 2023-12-13 16:52 | Emergency (ER) | payer MEDICARE, MEDICAID, SELFPAY ==
[2023-12-13 17:24] VITALS: BP 162/57; BP 180/90; PULSE 63; PULSE 66; RESP 20; TEMP 37.2; O2SAT 97; BMI 26.4
[2023-12-13 17:30] VITALS: BP 162/57; PULSE 63; RESP 20; TEMP 37.2; O2SAT 97
--- NOTE | 2023-12-13 18:52 | ECG_ITS ---
Test Reason : HYPERTENSION Blood Pressure : / mmHG Vent. Rate : 062 BPM Atrial Rate : 062 BPM P-R Int : 158 ms QRS Dur : 094 ms QT Int : 450 ms P-R-T Axes : -17 -51 061 degrees QTc Int : 456 ms Normal sinus rhythm Left anterior fascicular block Minimal voltage criteria for LVH, may be normal variant ( Johnson product ) Abnormal ECG When compared with ECG of 17-JUL-2023 13:28, No significant change was found Referred By: Jie Castelan Electronically Signed By:THERESA GONZALEZ
--- NOTE | 2023-12-13 19:04 | PC.NURSE ---
20G to RAC. Tolerated well. Good blood return.
--- NOTE | 2023-12-13 19:04 | PC.NURSE ---
Labs sent as ordered.
[2023-12-13 19:09] LABS: MANUAL DIFF FLAG NO
[2023-12-13 19:12] LABS: Basophils Percent Auto 0.8 % (0-2); Eosinophils Absolute Auto 0.1 X10*3/uL (0.0-0.4); Eosinophils Percent Auto 2.2 % (0-4); Hematocrit 35.7 % (37.0-47.0); Hemoglobin 12.4 g/dl (12.0-16.0); Imm Gran Abs Auto 0.02 X10*3/uL (0.00-0.03); Imm Gran Pct Auto 0.5 % (0.0-0.4); Lymphocytes Percent Auto 26.8 % (20-40); Mean Corpuscular HGB Conc 34.7 g/dl (31.0-35.0); Mean Corpuscular Hemoglobin 30.3 pg (27.0-33.0); Mean Corpuscular Volume 87.3 fL (80.0-98.0); Mean Platelet Volume 10.5 fL (9.4-12.3); Monocytes Absolute Auto 0.6 X10*3/uL (0.1-1.2); Neutrophils Percent Auto 54.7 % (45-73); Platelet Count 207 X10*3/uL (160-400); Red Blood Count 4.09 X10*6/uL (4.20-5.50); Red Cell Distribution Width 12.7 % (11.0-16.0); White Blood Count 3.7 X10*3/uL (4.8-10.8)
[2023-12-13 19:28] LABS: Alanine Aminotransferase 13 U/L (0-31); Alkaline Phosphatase 57 U/L (39-117); Anion Gap 16 (12-20); Aspartate Amino Transferase 20 U/L (5-31); Bilirubin Direct 0.2 mg/dL (0.0-0.5); Bilirubin Total 0.5 mg/dL (0.0-1.0); Blood Urea Nitrogen 22 mg/dL (9-16); Calcium 9.9 mg/dL (8.4-10.2); Carbon Dioxide 27 mmol/L (22-29); Chloride 102 mmol/L (96-108); Creatinine Clr Calc Pharmacy 32.6; Estimated Glomerular Filt Rate 37; Glucose Random 113 mg/dL (60-115); Magnesium 1.9 mg/dL (1.6-2.6); Sodium 141 mmol/L (135-145); Total Protein 6.7 g/dL (6.5-8.0)
[2023-12-13 19:36] LABS: Troponin-I High Sensitivity < 2.7 ng/L (<3.5-17.0)
--- NOTE | 2023-12-13 19:42 | ED.GENADULT ---
HPI - General Adult General Chief complaint: General Medical Stated complaint: blood pressure issues Time Seen by Provider: 12/13/23 19:42 History of Present Illness ED Provider: jason LEWIS narrative: The patient is a 78-year-old female who has been feeling very low energy in the mornings for the last 3 days. She has checked her blood pressures and has had some fairly low blood pressure readings such as 80/40. She has a history of kidney disease and is on multiple antihypertensives. Later in the day her blood pressures are better and her energy level is better. Today she spoke to her family about it and they insisted she come to the emergency department. She denies headache, chest pain, shortness of breath, abdominal pain, nausea, vomiting or any other symptoms aside from feeling like she has very little energy when her blood pressures are low. No fever, sweats, chills. No cough or sputum. No sore throat. Related Data Home Medications ?Medication ?Instructions ?Recorded ?Confirmed ascorbic acid (vitamin C) 500 mg 500 mg PO DAILY 03/22/22 03/22/22 tablet (Vitamin C) atorvastatin 40 mg tablet 40 mg PO DAILY 03/22/22 03/22/22 cholecalciferol (vitamin D3) 25 25 mcg PO DAILY 03/22/22 03/22/22 mcg (1,000 unit) capsule (Vitamin D3) gabapentin 300 mg capsule 900 mg PO BEDTIME 03/22/22 03/22/22 insulin aspart U-100 100 unit/mL 1 sliding scale dose subcut TID 03/22/22 03/22/22 subcutaneous solution (Novolog U-100 Insulin aspart) insulin glargine 100 unit/mL 18 unit subcut BEDTIME 03/22/22 03/22/22 subcutaneous solution (Lantus U-100 Insulin) lisinopril 40 mg tablet 40 mg PO DAILY 03/22/22 03/22/22 trazodone 150 mg tablet 150 mg PO BEDTIME 03/22/22 03/22/22 vitamin E 268 mg (400 unit) capsule 268 mg PO DAILY 03/22/22 03/22/22 amlodipine 10 mg tablet 10 mg PO DAILY 11/13/23 Previous Rx's ?Medication ?Instructions ?Recorded carvedilol 6.25 mg tablet 6.25 mg PO BID 30 days #60 tabs 09/09/23 furosemide 40 mg tablet 40 mg PO DAILY 30 days #30 tabs 11/13/23 Allergies Allergy/AdvReac Type Severity Reaction Status Date / Time influenza virus vaccine, Allergy Unknown PASSED OUT Verified 12/13/23 17:27 specific [Influenza Virus Vacc,Specific] Penicillins [PENICILLINS] Allergy Unknown TURNED RED Verified 12/13/23 17:27 A BEAT eggs Allergy Unknown Fainting Uncoded 12/13/23 17:27 Penicillin Allergy Unknown Redness of Uncoded 12/13/23 17:27 Skin Review of Systems Review of Systems: Yes all other systems are reviewed and are negative [facility] Past Medical History Medical History (Updated 12/14/23 @ 00:00 by Pinky Dumont) Psoriasis Peripheral neuropathy Mastodynia Hypertension Hypercholesterolemia Diabetes mellitus Diabetic retinopathy Chronic renal insufficiency Cataract Breast cancer Surgical History History of modified radical mastectomy of left breast H/O colonoscopy Social History Social History Alcohol intake: never Patient Tobacco Use Status: Never used Tobacco Physical Exam ED Vital Signs: Vital Signs - 24 hr 12/13/23 17:24 12/13/23 17:30 12/13/23 20:39 Temperature 98.9 F 98.9 F 98.8 F Pulse Rate 63 63 64 Respiratory Rate 20 20 17 Blood Pressure 162/57 H 162/57 H 162/94 H Pulse Oximetry 97 97 94 Oxygen Delivery Method Room Air Room Air Room Air BMI result Body Mass Index 26.4 Const Other: the patient is 78-year-old woman who is awake, alert, pleasant, cooperative. She does not seem in any distress. She does not appear ill. HENMT Other: Face appears normal. Face is symmetrical. Mucous membranes moist. Tongue midline. Eyes Other: Pupils small and equal, conjunctivae clear, extraocular movements intact. General: appearance normal, both eyes and all related structures Neck Neck: Yes normal visual inspection, Yes full ROM, Yes no lymphadenopathy, Yes supple and Yes no JVD Resp Effort & Inspection: normal respiratory effort Auscultation: clear to auscultation bilaterally Cardio Rate: regular rate Rhythm: regular rhythm Heart sounds: S1 normal heart sound present and S2 normal heart sound present GI Other: abdomen is soft and nontender Skin Other: skin is pale and dry Neuro Other: the patient is awake, alert, pleasant, cooperative. Normal mental status. Face is symmetrical. Eye movements normal. Speech is clear. She moves extremities normally and appropriately. She is neurologically intact. Extrem Other: no calf swelling or tenderness, no asymmetry. Medical Decision Making Medical Decision Making [facility] Narrative: The patient is a very pleasant 78-year-old woman with significant problems with hypertension, diabetes, and chronic kidney disease. For the last 2 or 3 days she has been feeling a sense of diminished energy in the mornings. She has taken her blood pressure when she feels less energetic and she has been hypotensive, with a blood pressure reading as low as 80/40 at home. She has not had any other symptoms other than the sense of less energy. She has not had any specific headache, chest pain, shortness of breath, or any other symptom associated with these low blood pressure readings. Her blood pressures seem to have responded without intervention and she is not hypertensive here in the emergency room. She is asymptomatic in the emergency room. She looks well. EKG is unremarkable. Labs are unremarkable. I do not think there is any indication for hospitalization. She had been prescribed furosemide for peripheral edema recently. She has no edema at all currently. I think she should probably stop the furosemide and contact her family service center director in the morning for further advice. Lab Data 12/13/23 19:04 12/13/23 19:04 Labs: Lab Results 12/13/23 Range/Units 19:04 WBC 3.7 L (4.8-10.8) X10*3/uL RBC 4.09 L (4.20-5.50) X10*6/uL Hgb 12.4 (12.0-16.0) g/dl Hct 35.7 L (37.0-47.0) % MCV 87.3 (80.0-98.0) fL MCH 30.3 (27.0-33.0) pg MCHC 34.7 (31.0-35.0) g/dl RDW 12.7 (11.0-16.0) % Plt Count 207 (160-400) X10*3/uL MPV 10.5 (9.4-12.3) fL Immature Gran % (Auto) 0.5 H (0.0-0.4) % Neut % (Auto) 54.7 (45-73) % Lymph % (Auto) 26.8 (20-40) % Hart % (Auto) 15.0 H (2-11) % Eos % (Auto) 2.2 (0-4) % Baso % (Auto) 0.8 (0-2) % Lymph # (Auto) 1.0 L (1.2-4.9) X10*3/uL Hart # (Auto) 0.6 (0.1-1.2) X10*3/uL Eos # (Auto) 0.1 (0.0-0.4) X10*3/uL Baso # (Auto) 0.0 (0.0-0.2) X10*3/uL Abs Immat Gran (auto) 0.02 (0.00-0.03) X10*3/uL Absolute Neuts (auto) 2.0 (2.0-8.3) x10*3/uL Absolute Nucleated RBC 0.000 (0.0-0.012) X10*3/uL Nucleated RBC % (auto) 0.0 (0.0-0.2) /100WBC Sodium 141 (135-145) mmol/L Potassium 4.0 (3.3-5.1) mmol/L Chloride 102 (96-108) mmol/L Carbon Dioxide 27 (22-29) mmol/L Anion Gap 16 (12-20) BUN 22 H (9-16) mg/dL Creatinine 1.39 (0.5-1.4) mg/dL Estim Creat Clear Calc 32.6 Estimated GFR 37 Random Glucose 113 (60-115) mg/dL Calcium 9.9 (8.4-10.2) mg/dL Magnesium 1.9 (1.6-2.6) mg/dL Total Bilirubin 0.5 (0.0-1.0) mg/dL Direct Bilirubin 0.2 (0.0-0.5) mg/dL AST 20 (5-31) U/L ALT 13 (0-31) U/L Alkaline Phosphatase 57 (39-117) U/L Troponin I High Sens < 2.7 (<3.5-17.0) ng/L Total Protein 6.7 (6.5-8.0) g/dL Albumin 4.0 (3.5-5.0) g/dL Discharge Plan Discharge Clinical Impression: Labile blood pressure Patient Disposition: Home, Self-Care Additional Instructions: Your testing today is reassuring. I suspect that the big variations in your blood pressure readings may be related to your medications. I would recommend stopping the furosemide in the short run. Please contact your family service center director in the morning to discuss these blood pressure readings further. Return to the emergency room if significantly worse. Prescriptions: No Action atorvastatin 40 mg tablet 40 mg PO DAILY insulin glargine [Lantus U-100 Insulin] 100 unit/mL solution 18 unit subcut BEDTIME insulin aspart U-100 [Novolog U-100 Insulin aspart] 100 unit/mL solution 1 sliding scale dose subcut TID Protocol: Insulin Correction Scale Less than or equal to 110 ---- Give (units): 0 111 to 150 Give (units): 0 151 to 200 Give (units): 2 201 to 250 Give (units): 4 251 to 300 Give (units): 6 301 to 350 Give (units): 8 Greater than 350 Give (units): 10 Call MD if Blood Glucose > : 350 trazodone 150 mg tablet 150 mg PO BEDTIME gabapentin 300 mg capsule 900 mg PO BEDTIME lisinopril 40 mg tablet 40 mg PO DAILY ascorbic acid (vitamin C) [Vitamin C] 500 mg Tablet 500 mg PO DAILY cholecalciferol (vitamin D3) [Vitamin D3] 25 mcg (1,000 unit) Capsule 25 mcg PO DAILY vitamin E 268 mg (400 unit) Capsule 268 mg PO DAILY carvedilol 6.25 mg tablet 6.25 mg PO BID 30 Days Qty: 60 3RF Rx Instructions: must administer with a meal/food amlodipine 10 mg tablet 10 mg PO DAILY furosemide 40 mg tablet 40 mg PO DAILY 30 Days Qty: 30 4RF Referrals: [facility] [Provider Group] (Labile blood pressures) Aj Todd MD [Physician] - (Labile blood pressures) Interventions: ED Discharge Assessment Last Done: 12/13/23 20:39 Discharge Date/Time: 12/13/23 20:40 Print Language: Azeri
[2023-12-13 20:39] VITALS: BP 162/94; PULSE 64; RESP 17; TEMP 37.1; O2SAT 94
== END 2023-12-13 20:40 | disposition home or self-care (01) ==
PROVIDERS: Physician Assistant; Emergency Provider Emergency Medicine
DX: R09.89 Other specified symptoms and signs involving the circulatory and respiratory systems (principal); R94.31 Abnormal electrocardiogram [ECG] [EKG]; Z79.899 Other long term (current) drug therapy
CPT/HCPCS: 36415; 80048; 80076; 83735; 84484; 85025; 93005; 99283; 99284

== ENCOUNTER 2023-12-22 12:05 | Outpatient (AMB) | payer MEDICARE, MEDICAID, SELFPAY ==
--- NOTE | 2023-12-22 12:14 | HO.NEPHOV ---
Vital Signs 12/22/23 12:15 Height 5 ft 5 in Weight 159 lb BMI 26.5 BP 122/54 L Blood Pressure Location Rt brachial Position Sitting Pulse 58 Pulse Source Pulse Oximeter Pulse Oximetry (%) 98 Oxygen Delivery Method Room Air Intake Visit Reasons: Dr Todd PT: Seen at [facility] ER on 12/13/23/ Conf Honing Machine Try Out Setter Required: No Allergies influenza virus vaccine, specific [Influenza Virus Vacc,Specific] Allergy (Unknown, Verified 12/22/23 12:17) PASSED OUT Penicillins [PENICILLINS] Allergy (Unknown, Verified 12/22/23 12:17) TURNED RED A BEAT eggs Allergy (Unknown, Uncoded 12/13/23 17:27) Fainting Penicillin Allergy (Unknown, Uncoded 12/13/23 17:27) Redness of Skin Medication List - Last Reconciled 12/22/23 by Damian Beth MD amlodipine 5 mg PO DAILY atorvastatin 40 mg PO DAILY carvedilol 6.25 mg PO BID 30 days furosemide 40 mg PO DAILY 30 days gabapentin 900 mg PO BEDTIME insulin aspart U-100 (Novolog U-100 Insulin aspart) 1 sliding scale dose See Protocol subcut TID insulin glargine (Lantus U-100 Insulin) 18 units subcut BEDTIME lisinopril 40 mg PO DAILY trazodone 150 mg PO BEDTIME HPI Comments Details: 78-year-old woman with a history of resistant hypertension and proteinuric CKD 3 in the setting of diabetes mellitus. She was recently in ER due to low blood pressure. She has been monitoring blood pressure at home home blood pressure readings are acceptable with a systolic blood pressure in the range of 100-120. All medications were reviewed [facility] Medical History (Updated 12/14/23 @ 00:00 by Pinky Dumont) Psoriasis Peripheral neuropathy Mastodynia Hypertension Hypercholesterolemia Diabetes mellitus Diabetic retinopathy Chronic renal insufficiency Cataract Breast cancer Surgical History History of modified radical mastectomy of left breast H/O colonoscopy Social History Alcohol intake: never Patient Tobacco Use Status: Never used Tobacco Physical Exam Vital Signs: Last Vital Signs Pulse 58 12/22/23 12:15 BP 122/54 L 12/22/23 12:15 Pulse Ox 98 12/22/23 12:15 Oxygen Delivery Method Room Air 12/22/23 12:15 BMI result Body Mass Index 26.5 Neck Neck: Yes supple Resp Auscultation: clear to auscultation bilaterally Cardio Palpation: no palpable S3 Heart sounds: no rubs GI Palpation (GI): Soft to palpation Auscultation: normal bowel sounds Neuro Motor exam (neuro): no asterixis Results Reviewed Nephrology Results: Hgb 12.4 g/dl (12.0-16.0) 12/13/23 WBC 3.7 X10*3/uL (4.8-10.8) L 12/13/23 Plt Count 207 X10*3/uL (160-400) 12/13/23 Sodium 141 mmol/L (135-145) 12/13/23 Potassium 4.0 mmol/L (3.3-5.1) 12/13/23 Chloride 102 mmol/L (96-108) 12/13/23 Carbon Dioxide 27 mmol/L (22-29) 12/13/23 BUN 22 mg/dL (9-16) H 12/13/23 Creatinine 1.39 mg/dL (0.5-1.4) 12/13/23 Calcium 9.9 mg/dL (8.4-10.2) 12/13/23 Urine Protein 100 (2+) mg/dL (Neg-Trace) H 08/26/23 Urine Creatinine 76.55 mg/dL 08/26/23 Protein/Creatinin Ratio 1.23 (<0.2) H 08/26/23 Renal US 08/17/23 Assessment & Plan Assessment & Plan (1) CKD stage 3 secondary to diabetes: Code(s): E11.22 - Type 2 diabetes mellitus with diabetic chronic kidney disease; N18.30 - Chronic kidney disease, stage 3 unspecified Category: Medical (2) Hypertension: Code(s): I10 - Essential (primary) hypertension Category: Medical Qualifiers: Hypertension type: primary hypertension Qualified Code(s): I10 - Essential (primary) hypertension (3) Proteinuria: Code(s): R80.9 - Proteinuria, unspecified Category: Medical Qualifiers: Proteinuria type: other Qualified Code(s): R80.8 - Other proteinuria Plan Blood pressure is rather low today. Given the recent episode of hypotension I will decrease amlodipine from 10 mg down to 5 mg. Obtain 24 hour ABP M in 1-2 weeks. Readjust antibody medications based on ABP M. I have reassured her and answered all her questions Orders: Orders AMB 24 HR B/P Monitor PLACEMENT 1 Week I10 - Essential (primary) hypertension Coding Level of Care Code Est Pt Level 4 (58139) Diagnoses CKD stage 3 secondary to diabetes E11.22; N18.30 Primary hypertension I10 Hypertension type: primary hypertension Other proteinuria R80.8 Proteinuria type: other
[2023-12-22 12:15] VITALS: BP 122/54; PULSE 58; O2SAT 98; BMI 26.5
== END 2023-12-22 12:36 | disposition home or self-care (01) ==
PROVIDERS: Visit Provider Internal Medicine Hypertension Specialist
DX: E11.22 Type 2 diabetes mellitus with diabetic chronic kidney disease (principal); N18.30 Chronic kidney disease, stage 3 unspecified; I10 Essential (primary) hypertension; R80.8 Other proteinuria
CPT/HCPCS: 99214

== ENCOUNTER → 2023-12-22 12:05 | Outpatient (BNVA) | payer MEDICARE, MEDICAID, SELFPAY | PROVIDERS: Visit Provider Internal Medicine Hypertension Specialist | DX: I1A.0 Resistant hypertension (principal); I12.9 Hypertensive chronic kidney disease with stage 1 through stage 4 chronic kidney disease, or unspecified chronic kidney disease; E11.22 Type 2 diabetes mellitus with diabetic chronic kidney disease; N18.30 Chronic kidney disease, stage 3 unspecified; R80.8 Other proteinuria | CPT/HCPCS: 99212 ==

== ENCOUNTER → 2023-12-30 14:09 | Outpatient (BNVA) | payer MEDICARE, MEDICAID, SELFPAY | PROVIDERS: Visit Provider Internal Medicine Nephrology ==

== ENCOUNTER → 2023-12-31 14:19 | Outpatient (BNVA) | payer MEDICARE, MEDICAID, SELFPAY | PROVIDERS: Visit Provider Internal Medicine Nephrology ==

== ENCOUNTER 2024-02-26 11:05 | Outpatient (AMB) | payer MEDICARE, MEDICAID, SELFPAY ==
--- NOTE | 2024-02-26 11:18 | HO.NEPHOV ---
Vital Signs 02/26/24 11:19 Height 5 ft 5 in Weight 165 lb BMI 27.5 BP 134/52 L Blood Pressure Location Rt brachial Position Sitting Pulse 52 Pulse Source Pulse Oximeter Pulse Oximetry (%) 97 Oxygen Delivery Method Room Air Intake Visit Reasons: 3 mon follow up-Conf Design Printer Balloon Required: No Accompanied by: Spouse Allergies influenza virus vaccine, specific [Influenza Virus Vacc,Specific] Allergy (Unknown, Verified 02/26/24 11:22) PASSED OUT Penicillins [PENICILLINS] Allergy (Unknown, Verified 02/26/24 11:22) TURNED RED A BEAT eggs Allergy (Unknown, Uncoded 12/13/23 17:27) Fainting Penicillin Allergy (Unknown, Uncoded 12/13/23 17:27) Redness of Skin HPI Comments Details: Bea was seen in follow up for her CKD, hypertension, pedal edema and proteinuria. She is 78 years of age and has longstanding diabetes with proliferative diabetic retinopathy, neuropathy and proteinuria. Her blood sugar control is remarkably better. She is hypertensive and is on multiple antihypertensive medications. She has history of breast cancer and had undergone surgery long time ago. She has no weight loss, hematuria, shortness of breath, paroxysmal nocturnal dyspnea, orthopnea, orthostatic symptoms. She has no new skin rashes, photosensitivity, epistaxis, recurrent sinusitis, recent sore throat, history of recent new antibiotic intake or excessive anti-inflammatories. She has no history of any hearing deficits. She was accompanied by her partner Daniel during this visit. [facility] Medical History (Updated 12/14/23 @ 00:00 by Pinky Dumont) Psoriasis Peripheral neuropathy Mastodynia Hypertension Hypercholesterolemia Diabetes mellitus Diabetic retinopathy Chronic renal insufficiency Cataract Breast cancer Surgical History History of modified radical mastectomy of left breast H/O colonoscopy Social History Alcohol intake: never Patient Tobacco Use Status: Never used Tobacco Review of Systems Const All systems reviewed & are unremarkable except as noted in HPI and below Physical Exam Vital Signs: Last Vital Signs Pulse 52 02/26/24 11:19 BP 134/52 L 02/26/24 11:19 Pulse Ox 97 02/26/24 11:19 Oxygen Delivery Method Room Air 02/26/24 11:19 BMI result Body Mass Index 27.5 Const General: comfortable and no acute distress Orientation/consciousness: patient oriented x3 HEENT Head: Yes normocephalic Mouth: Normal oral and palatal mucosa present Eyes EOM: EOMs intact bilaterally Neck Neck: Yes supple Resp Auscultation: clear to auscultation bilaterally Cardio Jugular venous distension: no JVD Rate: regular rate GI Palpation (GI): Soft to palpation Auscultation: normal bowel sounds General: Yes no CVA tenderness Back/Spine/Pelvis Back: no CVA tenderness Skin General skin exam: no rashes or lesions noted Neuro General: patient oriented x3 and moves all extremities Extrem General: Yes no pedal edema Results Reviewed Nephrology Results: Hgb 12.4 g/dl (12.0-16.0) 12/13/23 WBC 3.7 X10*3/uL (4.8-10.8) L 12/13/23 Plt Count 207 X10*3/uL (160-400) 12/13/23 Sodium 141 mmol/L (135-145) 12/13/23 Potassium 4.0 mmol/L (3.3-5.1) 12/13/23 Chloride 102 mmol/L (96-108) 12/13/23 Carbon Dioxide 27 mmol/L (22-29) 12/13/23 BUN 22 mg/dL (9-16) H 12/13/23 Creatinine 1.39 mg/dL (0.5-1.4) 12/13/23 Calcium 9.9 mg/dL (8.4-10.2) 12/13/23 Urine Protein 100 (2+) mg/dL (Neg-Trace) H 08/26/23 Urine Creatinine 76.55 mg/dL 08/26/23 Protein/Creatinin Ratio 1.23 (<0.2) H 08/26/23 Assessment & Plan Assessment & Plan (1) CKD stage 3 secondary to diabetes: Code(s): E11.22 - Type 2 diabetes mellitus with diabetic chronic kidney disease; N18.30 - Chronic kidney disease, stage 3 unspecified Category: Medical (2) Proteinuria: Code(s): R80.9 - Proteinuria, unspecified Category: Medical Qualifiers: Proteinuria type: other Qualified Code(s): R80.8 - Other proteinuria Plan Bea has proteinuria from diabetic nephropathy given she has proliferative retinopathy, neuropathy and long standing diabetes. I started her on 10 mg Jardiance which I plan to increase to 25 mg with time. Her renal imaging was unremarkable. I also increased her Amlodipine to 7.5 mg daily. She should cut back salt in the diet. Her BP is at goal. I will consider doing a renal biopsy, if indicated, based on evolving data. All these have been explained in detail with the patient and her partner. Answered all questions. Follow-up appointment given. Orders: Orders Creatinine 3 Months E11.22 - Type 2 diabetes mellitus with diabetic chronic kidney disease, N18.30 - Chronic kidney disease, stage 3 unspecified, R80.8 - Other proteinuria Blood Urea Nitrogen 3 Months E11.22 - Type 2 diabetes mellitus with diabetic chronic kidney disease, N18.30 - Chronic kidney disease, stage 3 unspecified, R80.8 - Other proteinuria Protein Creatinine Ratio, Ur 3 Months E11.22 - Type 2 diabetes mellitus with diabetic chronic kidney disease, N18.30 - Chronic kidney disease, stage 3 unspecified, R80.8 - Other proteinuria Electrolytes 3 Months E11.22 - Type 2 diabetes mellitus with diabetic chronic kidney disease, N18.30 - Chronic kidney disease, stage 3 unspecified, R80.8 - Other proteinuria Calcium 3 Months E11.22 - Type 2 diabetes mellitus with diabetic chronic kidney disease, N18.30 - Chronic kidney disease, stage 3 unspecified, R80.8 - Other proteinuria Medications: New empagliflozin (Jardiance) 10 mg PO DAILY 30 tabs 6RF Changed From amlodipine 7.5 mg PO DAILY To amlodipine 7.5 mg (0.75 x 10 mg) PO DAILY 90 days 90 tabs 4RF Coding Level of Care Code Est Pt Level 4 (90118) Diagnoses CKD stage 3 secondary to diabetes E11.22; N18.30 Other proteinuria R80.8 Proteinuria type: other
[2024-02-26 11:19] VITALS: BP 134/52; PULSE 52; O2SAT 97; BMI 27.5
== END 2024-02-26 11:51 | disposition home or self-care (01) ==
LOC: HO.HKA 11:06
PROVIDERS: Visit Provider Internal Medicine Nephrology
DX: E11.22 Type 2 diabetes mellitus with diabetic chronic kidney disease (principal); N18.30 Chronic kidney disease, stage 3 unspecified; R80.8 Other proteinuria
CPT/HCPCS: 99214

== ENCOUNTER → 2024-02-26 11:05 | Outpatient (BNVA) | payer MEDICARE, MEDICAID, SELFPAY | PROVIDERS: Visit Provider Internal Medicine Nephrology | DX: E11.22 Type 2 diabetes mellitus with diabetic chronic kidney disease (principal); I12.9 Hypertensive chronic kidney disease with stage 1 through stage 4 chronic kidney disease, or unspecified chronic kidney disease; N18.30 Chronic kidney disease, stage 3 unspecified; R80.8 Other proteinuria; R80.9 Proteinuria, unspecified; Z79.899 Other long term (current) drug therapy | CPT/HCPCS: 99212 ==

== ENCOUNTER 2024-05-31 10:11 | Outpatient (REF) | payer MEDICARE, MEDICAID, SELFPAY ==
[2024-05-31 13:53] LABS: Anion Gap 12 (12-20); Blood Urea Nitrogen 25 mg/dL (9-16); Calcium 9.1 mg/dL (8.4-10.2); Carbon Dioxide 27 mmol/L (22-29); Chloride 107 mmol/L (96-108); Estimated Glomerular Filt Rate 38; Potassium 4.6 mmol/L (3.3-5.1); Sodium 141 mmol/L (135-145)
[2024-05-31 14:10] LABS: Creatinine Urine 114.98 mg/dL; Protein/Creatinine Ratio, Ur 0.38 (<0.2); Total Protein Urine Random 44 mg/dL (<12)
== END 2024-05-31 10:12 | disposition home or self-care (01) ==
LOC: HO.HMGCLDS 10:11
PROVIDERS: Visit Provider Internal Medicine Nephrology
DX: E11.22 Type 2 diabetes mellitus with diabetic chronic kidney disease (principal); N18.30 Chronic kidney disease, stage 3 unspecified; R80.8 Other proteinuria
CPT/HCPCS: 36415; 80051; 82310; 82565; 82570; 84156; 84520

== ENCOUNTER 2024-06-03 10:09 | Outpatient (AMB) | payer MEDICARE, MEDICAID, SELFPAY ==
--- NOTE | 2024-06-03 10:37 | HO.NEPHOV ---
Vital Signs 06/03/24 10:39 Height 5 ft 5 in Weight 166 lb BMI 27.6 BP 142/60 H Blood Pressure Location Rt brachial Position Sitting Pulse 62 Pulse Source Pulse Oximeter Pulse Oximetry (%) 96 Oxygen Delivery Method Room Air Intake Visit Reasons: CKD-Conf Med Spa Manager Required: No Accompanied by: Significant Other Allergies influenza virus vaccine, specific [Influenza Virus Vacc,Specific] Allergy (Unknown, Verified 06/03/24 10:39) PASSED OUT Penicillins [PENICILLINS] Allergy (Unknown, Verified 06/03/24 10:39) TURNED RED A BEAT eggs Allergy (Unknown, Uncoded 12/13/23 17:27) Fainting Penicillin Allergy (Unknown, Uncoded 12/13/23 17:27) Redness of Skin HPI Comments Details: Bea was seen in follow up for her CKD, hypertension, pedal edema and proteinuria. She is 78 years of age and has longstanding diabetes with proliferative diabetic retinopathy, neuropathy and proteinuria. Her blood sugar control is remarkably better. She is hypertensive and is on multiple antihypertensive medications. She has history of breast cancer and had undergone surgery long time ago. She has no weight loss, hematuria, shortness of breath, paroxysmal nocturnal dyspnea, orthopnea, orthostatic symptoms. She has no new skin rashes, photosensitivity, epistaxis, recurrent sinusitis, recent sore throat, history of recent new antibiotic intake or excessive anti-inflammatories. She has no history of any hearing deficits. She was accompanied by her partner Daniel during this visit. [facility] Medical History (Updated 12/14/23 @ 00:00 by Pinky Dumont) Psoriasis Peripheral neuropathy Mastodynia Hypertension Hypercholesterolemia Diabetes mellitus Diabetic retinopathy Chronic renal insufficiency Cataract Breast cancer Surgical History History of modified radical mastectomy of left breast H/O colonoscopy Social History Alcohol intake: never Patient Tobacco Use Status: Never used Tobacco Review of Systems Const All systems reviewed & are unremarkable except as noted in HPI and below Physical Exam Vital Signs: Last Vital Signs Pulse 62 06/03/24 10:39 BP 142/60 H 06/03/24 10:39 Pulse Ox 96 06/03/24 10:39 Oxygen Delivery Method Room Air 06/03/24 10:39 BMI result Body Mass Index 27.6 Const General: comfortable and no acute distress Orientation/consciousness: patient oriented x3 HEENT Head: Yes normocephalic Mouth: Normal oral and palatal mucosa present Eyes EOM: EOMs intact bilaterally Neck Neck: Yes supple Resp Auscultation: clear to auscultation bilaterally Cardio Jugular venous distension: no JVD Rate: regular rate GI Palpation (GI): Soft to palpation Auscultation: normal bowel sounds General: Yes no CVA tenderness Back/Spine/Pelvis Back: no CVA tenderness Skin General skin exam: no rashes or lesions noted Neuro General: patient oriented x3 and moves all extremities Extrem General: Yes pedal edema Results Reviewed Nephrology Results: Sodium 141 mmol/L (135-145) 05/31/24 Potassium 4.6 mmol/L (3.3-5.1) 05/31/24 Chloride 107 mmol/L (96-108) 05/31/24 Carbon Dioxide 27 mmol/L (22-29) 05/31/24 BUN 25 mg/dL (9-16) H 05/31/24 Creatinine 1.33 mg/dL (0.5-1.4) 05/31/24 Calcium 9.1 mg/dL (8.4-10.2) 05/31/24 Urine Creatinine 114.98 mg/dL 05/31/24 Protein/Creatinin Ratio 0.38 (<0.2) H 05/31/24 Assessment & Plan Assessment & Plan (1) Hypertension: Code(s): I10 - Essential (primary) hypertension Category: Medical Qualifiers: Hypertension type: primary hypertension Qualified Code(s): I10 - Essential (primary) hypertension (2) CKD stage 3 secondary to diabetes: Code(s): E11.22 - Type 2 diabetes mellitus with diabetic chronic kidney disease; N18.30 - Chronic kidney disease, stage 3 unspecified Category: Medical (3) Proteinuria: Code(s): R80.9 - Proteinuria, unspecified Category: Medical Qualifiers: Proteinuria type: other Qualified Code(s): R80.8 - Other proteinuria Plan Bea has proteinuria from diabetic nephropathy given she has proliferative retinopathy, neuropathy and long standing diabetes. I started her on 10 mg Jardiance at the last visit which I plan to increase to 25 mg with time. Her renal imaging was unremarkable. She has some edema. I started her on lasix 20 mg every other day. Her proteinuria is better. Answered all questions. Orders: Orders Creatinine 3 Months E11.22 - Type 2 diabetes mellitus with diabetic chronic kidney disease, I10 - Essential (primary) hypertension, N18.30 - Chronic kidney disease, stage 3 unspecified, R80.8 - Other proteinuria Blood Urea Nitrogen 3 Months E11.22 - Type 2 diabetes mellitus with diabetic chronic kidney disease, I10 - Essential (primary) hypertension, N18.30 - Chronic kidney disease, stage 3 unspecified, R80.8 - Other proteinuria Electrolytes 3 Months E11.22 - Type 2 diabetes mellitus with diabetic chronic kidney disease, I10 - Essential (primary) hypertension, N18.30 - Chronic kidney disease, stage 3 unspecified, R80.8 - Other proteinuria Medications: Changed From furosemide 40 mg PO DAILY 30 tabs 6RF To furosemide 20 mg PO DAILY 90 tabs 6RF Coding Level of Care Code Est Pt Level 4 (53970) Diagnoses Primary hypertension I10 Hypertension type: primary hypertension CKD stage 3 secondary to diabetes E11.; N18.30 Other proteinuria R80.8 Proteinuria type: other
[2024-06-03 10:39] VITALS: BP 142/60; PULSE 62; O2SAT 96; BMI 27.6
--- OUTSIDE RECORDS SUMMARY | 2024-06-03 11:01 | XMS_ITS | Patient Health Record ---
[facility] Address [address] [place] [address] Care Team Providers Care Digital Imaging Specialist Name Role Phone Sepideh JOYCE, Valente Primary Care Provider Unavaila Ronak Honeycutt Unavailable [phone] Black, Sonali Unavailable [phone] Allergies Allergen (clinical drug ingredient) Drug/Non Drug Allergy documented on EMR Reaction Allergy Type Onset Date Status Vaccine product containing Influenza virus antigen (medicinal product) Flu shot (uncoded) Unknown Allergy Ac tive Penicillin Unknown Drug Allergy Active Results Component Value Reference Range Notes HEMOGLOBIN A1C (GLYCOHEMOGLO BIN) Reviewed date:05/06/2024 01:35:14 PM Interpretation: Performing Lab: Notes/Report: HEMOGLOBIN A1C % (HH) 6.7 Reason For Referral No Information Medications Medication SIG (Take, Route, Frequency, Duration) Notes Start Date End Date Status Gabapentin Active Lisinopril Active Extra Depth Orthopedic Shoes (1 Pair) with Customized Heat Molded Multidensity Innersoles (3 Pair) as directed Dx: NIDDM/Polyneuropathy (E11.42), Hammertoe Foot Deformity (M20.41,M20.42), Preulcerative Skin Lesion(s) (L85.1 05/06/2024 Active Lantus Active traZODone HCl Active NovoLOG Active ASO Ankle/Foot Stablizing AFO As directed Wear Daily for as needed 01/12/2024 Active Trulicity Active amLODIPine Besylate 10 MG 1 tablet Orally Once a day Active Trulicity 0.75 MG/0.5ML as directed Subcutaneous Active Carvedilol 6.25 MG 1 tablet with food O rally Twice a day Active Social History Tobacco Use: Social History Observation Description Date Details (start date - stop date) Never Smoker NA - NA Tobacco use other than smoking: Question Answer Notes Are you an other tobacco user? No Tobacco Control (Standard) Question Answer Notes Tobacco use: Nonsmoker Additional Findings: Tobacco non-user Current no nsmoker AUDIT-C (Standard) Question Answer Notes Did you have a drink containing alcohol in the p ast year? No Points 0 Interpretation Negative Problems Problem Type SNOMED Code ICD Code Onset Dates Problem Status W/U Status Risk Notes Problem Acquired hammer toe of right foot (0675629937820299 ) Other hammer toe(s) (acquired), right foot (M20.41) Active confirmed Problem Acquired hammer toe of left foot (7135724780578807 ) Other hammer toe(s) (acquired), left foot (M20.42) Active confirmed Problem Polyneuropathy due to type 2 diabetes mellitus (391589195) Type 2 diabetes mellitus with diabetic polyneuropathy (E11.42) Active confirmed Vital Signs Blood pressure diastolic 80 mm Hg 05/06/2024 Height 5 ft 5 in in 05/06/2024 Blood pressure systolic 120 mm Hg 05/06/2024 Weight 160 lbs 05/06/2024 BMI 26.62 kg/m2 05/06/2024 Procedures Procedure Date Ordered Date Performed Result Body Sit e 84576-NITMIKT NAIL, 1-5 01/12/2024 N/A 36665-VCIY SKIN LESIONS, 2 TO 4 01/12/2024 N/A T0043-YZRAXXFS DYSTROPHIC NAILS ANY # 01/12/2024 N/A 68691-QZDPPPD NAIL, 1-5 05/06/2024 N/A 59072-VKTT SKIN LESIONS, OVER 4 05/06/2024 N/A Q8450-NTXETMPZ DYSTROPHIC NAILS ANY # 05/06/2024 N/A Encounters Encounter Location Date Provider Diagnosis [facility] [place] [address] [place] [address] 01/12/2024 Ronak Mcgovern Type 2 diabetes mellitus with diabetic polyneuropathy E11.42 ; Tinea unguium B35.1 ; Pain in left foot M79.672 ; Pain in left ankle and joints of left foot M25.572 ; Bursitis of left foot M77.52 and Osteoarthritis of midtarsal joint of left foot M19.[address] [facility] [address] 05/06/2024 Ronak Mcgovern Type 2 diabetes mellitus with diabetic polyneuropathy E11.42 ; Tinea unguium B35.1 ; Other hammer toe(s) (acquired), right foot M20.41 and Other hammer toe(s) (acquired), left foot M20.[address] [address] 01/06/2024 Sonali Norman [address] [address] 01/12/2024 Ronak Mcgovern Assessments Encounter Date Diagnosis (ICD Code) Assessment Notes Treatment Notes Treatment Clinical Notes Section Notes 01/12/2024 Tinea unguium (ICD-10 - B35.1) 01/12/2024 Type 2 diabetes mellitus with diabetic polyneuropathy (ICD-10 - E11.42) 05/06/2024 Tinea unguium (ICD-10 - B35.1) 05/06/2024 Type 2 diabetes mellitus with diabetic polyneuropathy (ICD-10 - E11.42) 05/06/2024 Other hammer toe(s) (acquired), right foot (ICD-10 - M20.41) Patient Educated with: DIABETIC FOOT CARE INSTRUCTIONS. pdf (DIABETIC FOOT CARE INSTRUCTIONS. 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) Plan Of Treatment Pending Test Test Name Order Date X ray : Foot, left 3V 01/12/2024 82116-IHATWDU NAIL, 1-5 01/12/2024 20398-TNEUJRV NAIL, 1-5 05/06/2024 36600-YUSA SKIN LESIONS, OVER 4 05/06/19 25 65278-GFSC SKIN LESIONS, 2 TO 4 01/12/20 24 R7235-GHIROKTD DYSTROPHIC NAILS ANY # W8311-QVBNUQBH DYSTROPHIC NAILS ANY # Next Appt Details Provider Name:Ronak Mcgovern , 08/05/2024 12:45:00 PM, [address] [place] [address], [phone], Insurance Providers Payer Name Payer Address Payer Phone Subscriber Number Group Number Insured Name Patient Relationship to Insured Coverage Start Date Coverage End Date Medicare [employer] [address] [place] [address] [id number] Bea Elizabeth Self - patient is the insured Medical (General) History Medical History History ICD Code Arthritis Cancer Cataracts covid-19 Depression Diabetic High Blood Pressure Poor circulation Psoriasis/eczema Measles Mumps Chicken pox Surgical History Surgery Date(Month/Year) breast removal
--- OUTSIDE RECORDS SUMMARY | 2024-06-03 11:01 | XMS_ITS ---
Author Organization [facility] Address [address] [place] [id number] Care Team Providers Care Ic Designer Custom Name Role Phone Sepideh JOYCE, Valente Primary Care Provider Ronak Brothers Unavailable [phone] Moore Encounters Encounter Location Date Provider Diagnosis [address] [address] 04/22/2024 Ronak Mcgovern Plan Of Treatment Next Appt Details Provider Name:Ronak Mcgovern , 08/05/2024 12:45:00 PM, [address] [place] [address], [phone], Progress Notes * Bea FRANCOIS MDOB:[birth year] (78 yo F)Acc No.[id number]:04/22/2024 Progress Note Patient:?Bea FRANCOIS Provider:?Ronak Mcgovern DPM :1945???Age:78 Y???Sex:Female D ate:04/22/2024 Address:[address] [place] [address] liliam [phone] Pcp:Valente Bunn MD Subjective: * Chief Complaints: * ???1. Dr Moore. * Medical History:? Objective: * Vitals:? Assessment: Plan: * Treatment: * Images: * The named appointment provid er may or may not be the originator of this progress note, and it is not deemed complete until electronically signed by the appointment provider. Sign off status: Pending * Provider:?Ronak Mcgovern DPM Date:?2023 Generated for Willem guidry/Jadiel/Rut on:?06/03/2024 11:01 AM EST
--- OUTSIDE RECORDS SUMMARY | 2024-06-03 11:01 | XMS_ITS ---
Author Organization [facility] nancy Hutchins Address [address] [place] [address] Care Team Providers Care Rehabilitation Therapy Aide Name Role Phone Sepideh JOYCE, Valente Primary Care Provider Ronak Brothers Unavailable [phone] Allergies Allergen (clinical drug ingredient) Drug/Non Drug Allergy documented on EMR Reaction Allergy Type Onset Date Status Vaccine product containing Influenza virus antigen (medicinal product) Flu shot (uncoded) Unknown Allergy Ac tive Penicillin Unknown Drug Allergy Active REASON FOR VISIT At Risk Footcare, Toe Irritation Medications Medication SIG (Take, Route, Frequency, Duration) Notes Start Date End Date Status Gabapentin Active Lantus Active amLODIPine Besylate 10 MG 1 tablet Orally Once a day Active Trulicity 0.75 MG/0.5ML as directed Subcutaneous Active Carvedilol 6.25 MG 1 tablet with food O rally Twice a day Active Extra Depth Orthopedic Shoes (1 Pair) with Customized Heat Molded Multidensity Innersoles (3 Pair) as directed Dx: NIDDM/Polyneuropathy (E11.42), Hammertoe Foot Deformity (M20.41,M20.42), Preulcerative Skin Lesion(s) (L85.1 05/06/2024 Active traZODone HCl Active NovoLOG Active ASO Ankle/Foot Stablizing AFO As directed Wear Daily for as needed 01/12/2024 Active Trulicity Active Lisinopril Active Social History Tobacco Use: Social History [...] Problem Acquired hammer toe of right foot (4147859154200 105) Other hammer toe(s) (acquired), right foot (M20.41) Active confirmed Problem Acquired hammer toe of left foot (7206709703240 103) Other hammer toe(s) (acquired), left foot (M20.42) Active confirmed Vital Signs Height 5 ft 5 in in 05/06/2024 Weight 160 lbs 05/06/2024 BMI 26.62 kg/m2 05/06/2024 Blood pressure systolic 120 mm Hg 05/06/19 25 Blood pressure diastolic 80 mm Hg 025 Procedures Procedure Date Ordered Date Performed Result Body Sit e 16217-SKPWKWU NAIL, 1-5 05/06/2024 N/A 84649-GMBG SKIN LESIONS, OVER 4 05/06/2024 N/A G1322-OLUYTYUY DYSTROPHIC NAILS ANY # 05/06/2024 N/A Encounters Encounter Location Date Provider Diagnosis [facility] [place] [address] [place] [address] 05/06/2024 Ronak Mcgovern Type 2 diabetes mellitus with diabetic polyneuropathy E11.42 ; Tinea unguium B35.1 ; Other hammer toe(s) (acquired), right foot M20.41 and Other hammer toe(s) (acquired), left foot M20.42 Assessments Encounter Date Diagnosis (ICD Code) Assessment Notes Treatment Notes Treatment Clinical Notes Section Notes 05/06/2024 Type 2 diabetes mellitus with diabetic polyneuropathy (ICD-10 - E11.42) 05/06/2024 Tinea unguium (ICD-10 - B35.1) 05/06/2024 Other hammer toe(s) (acquired), right foot (ICD-10 - M20.41) Patient Educated with: DIABETIC FOOT CARE INSTRUCTIONS. pdf (DIABETIC FOOT CARE INSTRUCTIONS. pdf) 05/06/2024 Other hammer toe(s) (acquired), left foot (ICD-10 - M20.42) Plan Of Treatment Medication Medication Name Sig Start Date Stop Date Notes Extra Depth Orthopedic Shoes (1 Pair) with Customized Heat Molded Multidensity Innersoles (3 Pair) as directed Dx: NIDDM/Polyneuropathy (E11.42), Hammertoe Foot Deformity (M20.41,M20.42), Preulcerative Skin Lesion(s) (L85.1 05/06/2024 Treatment Notes Assessment Notes Other hammer toe(s) (acquired), right fo ot Patient Educated with: DIABETIC FOOT CARE INSTRUCTIONS.pdf (DIABETIC FOOT CARE INSTRUCTIONS.pdf) Pending Test Test Name Order Date 62510-ZENVZFM NAIL, 1-5 05/06/2024 35423-UXXM SKIN LESIONS, OVER 4 05/06/19 W3065-WCPGULNO DYSTROPHIC NAILS ANY # Next Appt Details Follow Up: prn, Reason: Provider Name:Ronak Mcgovern , 08/05/2024 12:45:00 PM, [address] [place] [address], [phone], Procedure Notes * Category Sub-Category Detail Notes Keratoma Treatment Parring or Cutting o f Benign Hyperkeratotic Lesion(s) (-57) More than 4 Lesions - Due to the at risk nature of the patients medical condition as documented in the exam findings, performance of this keratoderma treatment is medically necessary as its management by an unskilled/untrained nonprofessional would put this patients foot and overall health at risk. Therefore, the benign hyperkeratotic lesions, ( 6) in total, locations as stated and described in the exam ( Plantar, T1, SUB MTH (s) , 1 , Right , SUB MTH (s) , 2 , Right , SUB MTH (s) , 3 , Right, Plantar Heel(s), B/L), were pared, and/or cut utilizing a sterile 15 blade, tissue nippers, and/or power dremel instrumentation by the physician of record - 85300 Debride Nails 1-5 Procedure: Due to the cli nical pathology outlined in the exam findings, performance of this nail treatment is medically necessary as its management by an unskilled/untrained nonprofessional would put this patients foot and overall health at risk. Therefore, debridement to affected nail(s), as described in exam ( T1 , T2 , T4 , T6 , T9), was performed exclusively by the physician of record to reduce/remove overall nail length, girth, thickness, subungual debris, and necrotic tissue, by manual and/or electrical means through the use of a nail nipper and/or dremel stylegrinder, to a more viable healthy nail plate or bed tissue 5 nails or fewer in number. Silver nitrate was used for any petechial bleeding as necessary. Definitive antifungal treatment options, both pharmaceutical and surgical, have been reviewed and discussed with the patient. The patient solely prefers the use of intermittent/as needed professional debridement services for their nail condition and understands that additional periodic treatments may be required as necessary to maintain effective symptomatic relief - 81599 Nail Reduction Nail Reduction (-27) Trimming o f all dystrophic nails - Due to the at risk nature of the patients medical condition as documented in the exam findings, performance of this nail treatment is medically necessary as its management by an unskilled/untrained nonprofessional would put this patients foot and overall health at risk. Therefore, the dystrophic nails, in locations as stated and described in the exam ( TA, T3, T5, T7, T8 ), were debrided by the phisician of record to reduce/remove overall nail length and girth, by manual and electrical means with use of a nail nipper and/or dremel, to more viable healthy nail plate or bed tissue - G0127 Progress Notes * Bea FRANCOIS MDOB:[birth year] (78 yo F)Acc No.[id number]:05/06/2024 Progress Note Patient:?Bea FRANCOIS Provider:?Ronak Mcgovern DPM :1945???Age:78 Y???Sex:Female D ate:05/06/2024 Address:[address] [place] [address], [id number] Pcp:Valente Bunn MD Subjective: * Chief Complaints: * ???At Risk FootcareToe Irrit ation * HPI: ???At Risk footcare:?Pt States Last PCP Visit:?Date?03/02/2024 ???Toe pain:?Location:?B/L feet.?Duration:?several years.?Course:?worse.?Aggravated by:?shoes, any pressure.?Treatments:?change in shoes.? * ROS:?General/Constitutional:?Nausea?denies.?Vomiting?denies.?Hunger Thirst?admits.?Loss appetite?denies.?Chills?denies.?Fatigue?admits.?Fever?denies.?Night Sweats?admits.?Unexplained weight loss?denies.?Unexplained weight gain?denies.?HEENTM:?Dentures?admits.?Dizziness?admits.?Glasses/contacts?denies.?Retinopathy?den ies.?Blurred/double vision?denies.?TMJ?denies.?Discharge/drainage?denies.?Implants?denies.?Sore throat?denies.?Dental implants?denies.?Hard of hearing ?denies.?Difficulty chewing/swallowing/speaking?denies.?Nose bleeds?denies.?Sore mouth?denies.?Respiratory:?On O xygen?denies.?Pneumonia/pleurisy?denies.?Bronchitis?denies.?Emphysema?denies.?Co ughing?denies.?Cough blood?denies.?Shortness of breath?denies.?Wheezing?denies.?Cardiovascular:?Pacemaker?denies.?MVP?denies.?WPW?denies.?CHF?denies.?Heart attack?denies.?Septal defect?denies.?Rapid beat?denies.?Chest pain ?denies.?Atrial Fib.?denies.?Murmur/Palpitations?denies.?Gastrointestinal:?Hemorrhoids?denies.?Stomach/Abdominal pain?denies.?Dark blood stool?denies.?Irritable bowel ?denies.?Constipation?denies.?Diarrhea?denies.?Hematology:?Swelling?admits.?Clots?denies.?Varicose Veins?denies.?Bruising?denies.?Bleeding problem?denies.?Genitourinary:?Blood urine?denies.?Frequent/Painfu/urination/bladder control?denies.?Kidney stones?denies.?Infection (UTI)?denies.?Nephropathy?denies.?sex trans dis (STD)?denies.?Prostate?denies.?Musculoskeletal:?Hammertoes?admits.?Bunions?denies.?Back Pain?denies.?Muscle Cramps/ Resting?denies.?Muscle cramps / walking?denies.?Generalized aches and pains?denies.?Weakness?denies.?Integ.:?Medina?denies.?Scars?admits.?Corns/calluses?admits.?Ingrown nails?admits.?Painful nails?denies.?Open Sores?denies.?Rashes?denies.?Neurologic:?Difficulty sleeping?denies.?Brain disorder?denies.?Numbness?admits.?Balance trouble?denies.?Confusion?denies.?Fainting/blackouts?denies.?Tingling?admits, bilateral lower extremities, in the toes, that is mild.?Tremors?denies.? * Medical History:? * Surgical History:?breast rem oval * Hospitalization/Major Diagno stic Procedure:?Denies Past Hospitalization * Family History:?Mother: dece ased, diagnosed with Other malignant neoplasm of unspecified site.?Father: .?Paternal Grand Mother: diagnosed with Diabetic - NIDDM.?Paternal aunt: diagnosed with Unspecified heart disease.? * Social History:?Tobacco Use:?Tobacco use other than smoking?Are you an other tobacco user??No ?Tobacco Control (Standard)?Tobacco use:?Nonsmoker ?Additional Findings: Tobacco non-user?Current nonsmoker ???Drugs/Alcohol:?Drugs?Have you used drugs other than those for medical reasons in the past 12 months??No ???Miscellaneous:?Caffeine: yes, frequency:, 2-3 cups per day. ?Children: yes, 4. ?Exercise: no. ?Marital status: . ?Occupation: Retired. ???Drug/Alcohol:?AUDIT-C (Standard)?Did you have a drink containing alcohol in the past year??No ?Points?0 ?Interpretation?Negative * Medications:?TakingamLODIPin e Besylate 10 MG Tablet 1 tablet Orally Once a day Carvedilol 6.25 MG Tablet 1 tablet with food Orally Twice a day Trulicity 0.75 MG/0.5ML Solution Pen-injector as directed Subcutaneous Gabapentin Lantus Lisinopril NovoLOG traZODone HCl Trulicity ASO Ankle/Foot Stablizing AFO As directed Wear Daily Medication List reviewed and reconciled with the patientTaking amLODIPine Besylate 10 MG Tablet 1 tablet Orally Once a day Taking Carvedilol 6.25 MG Tablet 1 tablet with food Orally Twice a day Taking Trulicity 0.75 MG/0.5ML Solution Pen-injector as directed Subcutaneous Taking Gabapentin Taking Lantus Taking Lisinopril Taking NovoLOG Taking traZODone HCl Taking Trulicity Taking ASO Ankle/Foot Stablizing AFO As directed Wear Daily Medication List reviewed and reconciled with the patient * Allergies:?PenicillinFlu danial tyes[Allergies Verified] Objective: * Vitals:?Ht: 5 ft 5 in, Wt:16 0, BMI: 26.62, Shoe size:10-10.5, BP:120/80mm Hg, BS:104, Ht-cm: 165.1 cm, Wt-k.57 kg. * ???Past Orders: ???Lab:HEMOGLOBIN A1C (GLYCO HEMOGLOBIN) (Order Date - 05/06/2024) (Collection Date & Time - 02/26/2024 01:34 PM) ? Value Reference Range ?HEMOGLOBIN A1C % (HH) 6.7 * Examination: ???Ophthalmology Referral: ?DIABETES EYE EXAM?Neurological: ?SENSORY:?Neurological exam demonstrates, reduced light touch sensation, reduced sharp/dull discrimination , reduced vibration sensation, in a stocking fashion, B/L, 5.07 monofilament test performed at plantar aspects of 5 varied sites per foot shows sensation, reduced, B/L.?TINEL'S COMPRESSION:? Negative, Medial dorsal cutaneous nerve distribution, Intermediate dorsal cutaneous nerve distribution, Deep peroneal nerve distribution, Left.?Nails: ?NAILS are:?Elongated, overgrown, dystrophic, lytic, greater than 3mm thick, discolored and friable with crumbly malodorous subungual debris , T1 , T2 , T4 , T6 , T9 , all other nails not described with characteristics as possessing mycosis are elongated, overgrown, and dystrophic ( TA, T3, T5, T7, T8?).?Dermatologic: ?SKIN FINDINGS:?Skin exam reveals Keratotic lesion(s) located at , Plantar, T1, SUB MTH (s) , 1 , Right , SUB MTH (s) , 2 , Right , SUB MTH (s) , 3 , Right, Plantar Heel(s), B/L.?Orthopedic: ?MUSCLE STRENGTH:?5/5 all groups in a symmetrical fashion, B/L.?GAIT ABNORMALITY:?Pronated.?FOOT MORPHOLOGY:?Pes Planus structure, (-) Charcot collapse/destruction noted at MTJ.?DIGITAL DEFORMITIES:?Digital contracture, PIPJ, 2-5 B/L, incompl-reducible with WB, or to push-up test, no over, nor underlapping.?FOOTWEAR:?worn, OT were inspected and noted to be severely worn , in poor condition not giving proper support at the present time.?Vascular: ?DP PULSES (B):?0/4 , LEFT , 1/4 , RIGHT.?PT PULSES (B):?0/4, B/L.?CAPILLARY FILL TIME:?delayed, all digits, B/L.?TROPHIC CONDITION-TEXTURE/ELASTICITY/TURGOR/HAIR GROWTH (B):?decreased, with sparse to absent hair growth, B/L.?TEMPERTURE GRADIENT (C):?decreased, cool to cool, proximal to distal, B/L.?PIGMENTATION:?mottled, B/L.?EDEMA (C):?1/4 , non-pitting , without aching pain , Leg(s) , Ankle(s) , B/L.?CLAUDICATION (C):?denies, B/L.?REST PAIN:?denies, B/L.?General Examination: ?GENERAL APPEARANCE:?Reveals a pleasant, alert, well nourished, well- developed, well hydrated individual, who demonstrates proper attention to hygiene/body habitus, and is in no acute distress, Pt serves as own historian for office visit today , Pt accompanied by , , and/who is physically present in exam room at time of visit.?ORIENTED:?person, place, and time.?FOOT EXAM:?Footwear Evaluation? Assessment: * Assessment: 1.?Tinea unguium - B35.1???2 .?Type 2 diabetes mellitus with diabetic polyneuropathy - E11.42 (Primary)???3.?Other hammer toe(s) (acquired), right foot - M20.41???Specify :Chronic problem, Worse (4),Rx Management (4)???4.?Other hammer toe(s) (acquired), left foot - M20.42???Specify :Chronic problem, Worse (4),Rx Management (4)??? Plan: * Treatment: 2.?Other hammer toe(s) (acqu ired), right foot? Start Extra Depth Orthopedic Shoes (1 Pair) with Customized Heat Molded Multidensity Innersoles (3 Pair), as directed, Dx: NIDDM/Polyneuropathy (E11.42), Hammertoe Foot Deformity (M20.41,M20.42), Preulcerative Skin Lesion(s) (L85.1, 1, Refills 0.?? Notes: Patient Educated with: DIABETIC FOOT CARE INSTRUCTIONS.pdf (DIABETIC FOOT CARE INSTRUCTIONS.pdf)?? * Procedures:?Debride Nails 1-5:?Procedure:?Due to the clinical pathology outlined in the exam findings, performance of this nail treatment is medically necessary as its management by an unskilled/untrained nonprofessional would put this patients foot and overall health at risk. Therefore, debridement to affected nail(s), as described in exam (?T1?,?T2?,?T4?,?T6?,?T9), was performed exclusively by the physician of record to reduce/remove overall nail length, girth, thickness, subungual debris, and necrotic tissue, by manual and/or electrical means through the use of a nail nipper and/or dremel stylegrinder, to a more viable healthy nail plate or bed tissue 5 nails or fewer in number. Silver nitrate was used for any petechial bleeding as necessary. Definitive antifungal treatment options, both pharmaceutical and surgical, have been reviewed and discussed with the patient. The patient solely prefers the use of intermittent/as needed professional debridement services for their nail condition and understands that additional periodic treatments may be required as necessary to maintain effective symptomatic relief - 35569.?Keratoma Treatment:?Parring or Cutting of Benign Hyperkeratotic Lesion(s)?(-57) More than 4 Lesions - Due to the at risk nature of the patients medical condition as documented in the exam findings, performance of this keratoderma treatment is medically necessary as its management by an unskilled/untrained nonprofessional would put this patients foot and overall health at risk. Therefore, the benign hyperkeratotic lesions, ( 6) in total, locations as stated and described in the exam (?Plantar,?T1,?SUB MTH (s)?,?1?,?Right?,?SUB MTH (s)?,?2?,?Right?,?SUB MTH (s)?,?3?,?Right,?Plantar Heel(s),?B/L), were pared, and/or cut utilizing a sterile 15 blade, tissue nippers, and/or power dremel instrumentation by the physician of record - 16182.?Nail Reduction:?Nail Reduction?(-27) Trimming of all dystrophic nails - Due to the at risk nature of the patients medical condition as documented in the exam findings, performance of this nail treatment is medically necessary as its management by an unskilled/untrained nonprofessional would put this patients foot and overall health at risk. Therefore, the dystrophic nails, in locations as stated and described in the exam (?TA, T3, T5, T7, T8?), were debrided by the phisician of record to reduce/remove overall nail length and girth, by manual and electrical means with use of a nail nipper and/or dremel, to more viable healthy nail plate or bed tissue - G0127.? * Procedure Codes:?G0127 MARY ING DYSTROPHIC NAILS ANY #, Modifiers: XS 67903 DEBRIDE NAIL, 1-5, Modifiers: XS 04450 TRIM SKIN LESIONS, OVER 4, Modifiers: XS * Preventive Medicine:? ??Counseling:?Discussion:?-14: Office or other outpatient visit for the evaluation and management of an established patient, which required a medically appropriate history and/or examination and MODERATE level of DECISION MAKING for: 1 OR MORE CHRONIC PROBLEM(S) THATS WORSENING, 2 STABLE CHRONIC PROBLEMS, A NEWLY DIAGNOSED PROBLEM WITH UNCERTAIN PROGNOSIS, AN ACUTE COMPLICATED INJURY WITH MULTIPLE TREATMENT OPTIONS, OR AN ACUTE PROBLEM WITH ACCOMPANYING SYSTEMIC SYMPTOMS, THAT POSE(S) A MODERATE RISK OF MORBIDITY. THIS CONDITION MAY ALSO INCLUDE RX DRUG MANAGEMENT, OR A DECISON FOR MINOR SURGERY. The visit on the day of the encounter encompassed interpreting the data and educating the patient as to the nature of their condition, treatment options available according to their individual PMH, meds, allergies, and overall health/living conditions, as well as any potential risks or complications that may occur from a failure to adhere to, and participate in, the recommended course of therapy. The discussion included a complete verbal, and/or written explanation of the examination results, any x-rays taken, the proposed diagnosis, and outline of the treatment plan. A schedule for future care needs was also explained. The patient verbalized an understanding of the instructions at this time and agreed to be an active participant in their treatment. If the patient should think of any questions or concerns after the visit, I have encouraged the patient to call the office.?Digital Surgery:?Digital surgery was discussed with the patient, We elected to try conservative treatment at the present time, due to the patients medical history and increased asssociated post-operative risks.?Digital Treatment:?HT- I explained to the patient the possible etiologies of Hammertoes, including genetics/foot type/shoegear/activity level/exercise routine and the risks/benefits of all the different treatment options for their pain including: No treatment at all, Rest, Ice, New/supportive/wider/deeper Shoegear, Digital Padding/Strapping/Taping/Bracing/Gel protective sleeves, Foot/Ankle AFO Bracing, Stretching exercises, Deep Tissue Massage, Arch support/shoe inserts with splay metatarsal padding, and Custom orthoses. I insisted that any digital devices be removed daily and not worn overnight for safety. The patient is to carefully examine the toes daily for any skin irritation while using any splinting or padding device. The advantages and disadvantages of each option were discussed and the patients questions re: shoegear, padding, custom vs prefabricated inserts, activity level, and consistency in home treatment regimens for optimal success were answered to their verbally confirmed satisfaction.?Shoe Gear Counseling:?SHOE Rx - The patient was counseled in great detail on their muscoloskeletal foot and toe deformities which coincided with the dermatological presentations visualized on exam. We discussed how their deformities put the integrity of their feet at risk for potential pedal complications which makes the accomidative diabetic shoes and cutomizable inserts medically necessary. We discussed the different shoe and insert treatment types and options, as well as the important advantages for adhering to regularly wearing these accomidative devices daily. The patient was made aware of the fact that a failure to abide by these recommedations may be deleterious to their foot health as they are able to prevent many pedal complications such as skin irritation, skin ulceration, infection, and even loss of toe/foot/leg/or life. Time was also spent with the patient dispensing and discussing proper diabetic footcare techniques including daily skin moisturization, daily foot inspection for any interruption in skin integrity including open lesions, or sign of infection such as redness/malodor/drainage/swelling. Also discussed and recommended were procedures regarding daily shoe inspection for the presence of internal foreign bodies as well as any visualized irregular shoe or insert wear. Patient questions re: shoes, inserts, and self foot inspections were answered to their satisfaction as the patient verbally confirmed a full understanding of the above information. A Rx for Extra Depth Orthopedic Shoes with 3 pair of custom heat-molded inserts was dispensed.? ??Screening/Special Tests:?Fall Risk?Screening:?No falls in the past year ?FALLS: Screening for Future Fall Risk?Have you had any falls with injury in the past year??No * Follow Up:?prn * Images: * Sign off status: Completed true * Provider:?Ronak Mcgovern DPM Date:?2024 Generated for Willem guidry/Jadiel/Laurasmitting on:?06/03/2024 11:00 AM EST History and Physical Notes * HPI (History of Present Illness) Category Sub-Category Detail Notes Category Not es Toe pain Location: B/L feet Duration: several years Course: worse Aggravated by: shoes, any pressure Treatments: change in shoes At Risk footcare Pt States Last PCP Visit: Date: 4 Examination Category Sub-Category Detail Notes Category Not es Neurological SENSORY: Neurological exa m demonstrates, reduced light touch sensation, reduced sharp/dull discrimination , reduced vibration sensation, in a stocking fashion, B/L, 5.07 monofilament test performed at plantar aspects of 5 varied sites per foot shows sensation, reduced, B/L TINEL'S COMPRESSION: Negative, Medial do rsal cutaneous nerve distribution, Intermediate dorsal cutaneous nerve distribution, Deep peroneal nerve distribution, Left Dermatologic SKIN FINDINGS: Skin exam reveal s Keratotic lesion(s) located at , Plantar, T1, SUB MTH (s) , 1 , Right , SUB MTH (s) , 2 , Right , SUB MTH (s) , 3 , Right, Plantar Heel(s), B/L Orthopedic GAIT ABNORMALITY: Pronated FOOT MORPHOLOGY: Pes Planus structure , (-) Charcot collapse/destruction noted at MTJ FOOTWEAR: worn, OT were inspec zac and noted to be severely worn , in poor condition not giving proper support at the present time DIGITAL DEFORMITIES: Digital contracture , PIPJ, 2-5 B/L, incompl-reducible with WB, or to push-up test, no over, nor underlapping MUSCLE STRENGTH: 5/5 all groups in a symmetrical fashion, B/L General Examination GENERAL APPEARANCE: Reveals a pleasant, alert, well nourished, well-developed, well hydrated individual, who demonstrates proper attention to hygiene/body habitus, and is in no acute distress, Pt serves as own historian for office visit today , Pt accompanied by , , and/who is physically present in exam room at time of visit FOOT EXAM: Lower Extremity Neurological Exa m performed:: Yes Visual exam of foot performed:: Yes Date: 05/06/2024 ORIENTED: person, place, and t donna Footwear Evaluation Footwear Evaluation performe d:: Yes Ophthalmology Referral DIABETES EYE EXAM Procedure Perform ed:: Yes ?Date of Exam Performed: 12/29/2023 Diabetic Retinopathy Screening:: Yes Findings of Diabetic Eye Exam:: no retin opathy Vascular DP PULSES (B): 0/4 , LEFT , 1/4 , RIGHT PT PULSES (B): 0/4, B/L CAPILLARY FILL TIME: delayed, all digits , B/L TEMPERTURE GRADIENT (C): decreased, cool to cool, proximal to distal, B/L TROPHIC CONDITION-TEXTURE/ELASTICITY/TURGOR/HAIR GROWTH (B): decreased, with sparse to absent hair gr owth, B/L EDEMA (C): 1/4 , non-pitting , without aching pain , Leg(s) , Ankle(s) , B/L CLAUDICATION (C): denies, B/L REST PAIN: denies, B/L PIGMENTATION: mottled, B/L Nails NAILS are: Elongated, overg rown, dystrophic, lytic, greater than 3mm thick, discolored and friable with crumbly malodorous subungual debris , T1 , T2 , T4 , T6 , T9 , all other nails not described with characteristics as possessing mycosis are elongated, overgrown, and dystrophic ( TA, T3, T5, T7, T8 )
== END 2024-06-03 11:06 | disposition home or self-care (01) ==
PROVIDERS: Visit Provider Internal Medicine Nephrology
DX: I10 Essential (primary) hypertension (principal); E11.22 Type 2 diabetes mellitus with diabetic chronic kidney disease; N18.30 Chronic kidney disease, stage 3 unspecified; R80.8 Other proteinuria
CPT/HCPCS: 99214

== ENCOUNTER → 2024-06-03 10:09 | Outpatient (BNVA) | payer MEDICARE, MEDICAID, SELFPAY | PROVIDERS: Visit Provider Internal Medicine Nephrology | DX: I12.9 Hypertensive chronic kidney disease with stage 1 through stage 4 chronic kidney disease, or unspecified chronic kidney disease (principal); E11.22 Type 2 diabetes mellitus with diabetic chronic kidney disease; E11.40 Type 2 diabetes mellitus with diabetic neuropathy, unspecified; N18.30 Chronic kidney disease, stage 3 unspecified; R80.8 Other proteinuria | CPT/HCPCS: 99212 ==

== ENCOUNTER 2024-09-07 15:09 | Outpatient (REF) | payer MEDICARE, MEDICAID, SELFPAY ==
[2024-09-07 16:29] LABS: Anion Gap 12 (12-20); Blood Urea Nitrogen 25 mg/dL (9-16); Carbon Dioxide 26 mmol/L (22-29); Chloride 103 mmol/L (96-108); Estimated Glomerular Filt Rate 31; Potassium 4.3 mmol/L (3.3-5.1); Sodium 137 mmol/L (135-145)
== END 2024-09-07 15:10 | disposition home or self-care (01) ==
LOC: HO.HMGCLDS 15:09
PROVIDERS: Visit Provider Internal Medicine Nephrology
DX: E11.22 Type 2 diabetes mellitus with diabetic chronic kidney disease (principal); N18.30 Chronic kidney disease, stage 3 unspecified; R80.8 Other proteinuria; I10 Essential (primary) hypertension
CPT/HCPCS: 36415; 80051; 82565; 84520

== ENCOUNTER 2024-09-09 09:24 | Outpatient (AMB) | payer MEDICARE, MEDICAID, SELFPAY ==
--- NOTE | 2024-09-09 09:29 | HO.NEPHOV_ITS ---
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 She is 79 years of age and has longstanding diabetes with proliferative diabetic retinopathy, neuropathy and proteinuria. Her blood sugar control is remarkably better. She is hypertensive and is on multiple antihypertensive medications. She has history of breast cancer and had undergone surgery long time ago. She has no weight loss, hematuria, shortness of breath, paroxysmal nocturnal dyspnea, orthopnea, orthostatic symptoms. She has no new skin rashes, photosensitivity, epistaxis, recurrent sinusitis, recent sore throat, history of recent new antibiotic intake or excessive anti- inflammatories. She has no history of any hearing deficits. She was accompanied by her partner Daniel during this visit. [facility] Medical History (Updated 12/14/23 @ 00:00 by Pinky Dumont) Psoriasis Peripheral neuropathy Mastodynia Hypertension Hypercholesterolemia Diabetes mellitus Diabetic retinopathy Chronic renal insufficiency Cataract Breast cancer Surgical History History of modified radical mastectomy of left breast H/O colonoscopy Social History Alcohol intake: never Patient Tobacco Use Status: Never used Tobacco Review of Systems Const All systems reviewed & are unremarkable except as noted in HPI and below Physical Exam Vital Signs: Last Vital Signs Pulse 76 09/09/24 09:31 BP 120/54 L 09/09/24 09:31 Pulse Ox 96 09/09/24 09:31 Oxygen Delivery Method Room Air 09/09/24 09:31 BMI result Body Mass Index 29.1 Const General: comfortable and no acute distress Orientation/consciousness: patient oriented x3 HEENT Head: Yes normocephalic Mouth: Normal oral and palatal mucosa present Eyes EOM: EOMs intact bilaterally Neck Neck: Yes supple Resp Auscultation: clear to auscultation bilaterally Cardio Jugular venous distension: no JVD Rate: regular rate Heart sounds: Murmur heart sound present GI Palpation (GI): Soft to palpation Auscultation: normal bowel sounds General: Yes no CVA tenderness Back/Spine/Pelvis Back: no CVA tenderness Skin General skin exam: no rashes or lesions noted Neuro General: patient oriented x3 and moves all extremities Extrem General: Yes edema Assessment & Plan Assessment & Plan (1) CKD stage 3 secondary to diabetes: Code(s): E11.22 - Type 2 diabetes mellitus with diabetic chronic kidney disease; N18.30 - Chronic kidney disease, stage 3 unspecified Category: Medical (2) Hypertension: Code(s): I10 - Essential (primary) hypertension Category: Medical Qualifiers: Hypertension type: primary hypertension Qualified Code(s): I10 - Essential (primary) hypertension (3) Proteinuria: Code(s): R80.9 - Proteinuria, unspecified Category: Medical Qualifiers: Proteinuria type: other Qualified Code(s): R80.8 - Other proteinuria (4) Edema: Code(s): R60.9 - Edema, unspecified Category: Medical Qualifiers: Edema type: localized Qualified Code(s): R60.0 - Localized edema Plan Bea has proteinuria from diabetic nephropathy given she has proliferative retinopathy, neuropathy and long standing diabetes. I started her on 10 mg Jardiance which I plan to increase to 25 mg with time. Her renal imaging was unremarkable. She has some edema. She can continue lasix 20 mg every day. Her proteinuria is better. If her edema persists, I plan to D/ C Amlodipine and start Imdur. She may need ECHO. Answered all questions. Coding Level of Care Code Est Pt Level 4 (13265) Diagnoses CKD stage 3 secondary to diabetes E11.22; N18.30 Primary hypertension I10 Hypertension type: primary hypertension Other proteinuria R80.8 Proteinuria type: other Localized edema R60.0 Edema type: localized
[2024-09-09 09:31] VITALS: BP 120/54; PULSE 76; O2SAT 96; BMI 29.1
== END 2024-09-09 10:14 | disposition home or self-care (01) ==
LOC: HO.HKA 09:30
PROVIDERS: PCP Internal Medicine; Visit Provider Internal Medicine Nephrology
DX: E11.22 Type 2 diabetes mellitus with diabetic chronic kidney disease (principal); N18.30 Chronic kidney disease, stage 3 unspecified; I10 Essential (primary) hypertension; R80.8 Other proteinuria; R60.0 Localized edema
CPT/HCPCS: 99214

== ENCOUNTER → 2024-09-09 09:24 | Outpatient (BNVA) | payer MEDICARE, MEDICAID, SELFPAY | PROVIDERS: PCP Internal Medicine; Visit Provider Internal Medicine Nephrology | DX: E11.22 Type 2 diabetes mellitus with diabetic chronic kidney disease (principal); E11.3599 Type 2 diabetes mellitus with proliferative diabetic retinopathy without macular edema, unspecified eye; I12.9 Hypertensive chronic kidney disease with stage 1 through stage 4 chronic kidney disease, or unspecified chronic kidney disease; N18.30 Chronic kidney disease, stage 3 unspecified; R80.8 Other proteinuria; R60.0 Localized edema; Z79.899 Other long term (current) drug therapy | CPT/HCPCS: 99212 ==

== ENCOUNTER 2024-10-14 11:34 | Outpatient (AMB) | payer MEDICARE, MEDICAID, SELFPAY ==
--- NOTE | 2024-10-14 11:48 | HO.NEPHOV_ITS ---
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 She is 79 years of age and has longstanding diabetes with proliferative diabetic retinopathy, neuropathy and proteinuria. Her blood sugar control is remarkably better. She is hypertensive and is on multiple antihypertensive medications. She has history of breast cancer and had undergone surgery long time ago. She has no weight loss, hematuria, shortness of breath, paroxysmal nocturnal dyspnea, orthopnea, orthostatic symptoms. She has no new skin rashes, photosensitivity, epistaxis, recurrent sinusitis, recent sore throat, history of recent new antibiotic intake or excessive anti- inflammatories. She has no history of any hearing deficits. She is not sure whether she has been taking Jardiance. She was accompanied by her partner Daniel during this visit. [facility] Medical History (Updated 12/14/23 @ 00:00 by Pinky Dumont) Psoriasis Peripheral neuropathy Mastodynia Hypertension Hypercholesterolemia Diabetes mellitus Diabetic retinopathy Chronic renal insufficiency Cataract Breast cancer Surgical History History of modified radical mastectomy of left breast H/O colonoscopy Social History Alcohol intake: never Patient Tobacco Use Status: Never used Tobacco Review of Systems Const All systems reviewed & are unremarkable except as noted in HPI and below Physical Exam Vital Signs: Last Vital Signs Pulse 55 10/14/24 11:49 BP 130/60 10/14/24 11:49 Pulse Ox 97 10/14/24 11:49 Oxygen Delivery Method Room Air 10/14/24 11:49 BMI result Body Mass Index 27.8 Const General: comfortable and no acute distress Orientation/consciousness: patient oriented x3 HEENT Head: Yes normocephalic Mouth: Normal oral and palatal mucosa present Eyes EOM: EOMs intact bilaterally Neck Neck: Yes supple Resp Auscultation: clear to auscultation bilaterally Cardio Jugular venous distension: no JVD Rate: regular rate GI Palpation (GI): Soft to palpation Auscultation: normal bowel sounds General: Yes no CVA tenderness Back/Spine/Pelvis Back: no CVA tenderness Skin General skin exam: no rashes or lesions noted Neuro General: patient oriented x3 and moves all extremities Extrem General: Yes no pedal edema Results Reviewed Nephrology Results: Sodium, (135-145) 137 mmol/L 09/07/24 Potassium, (3.3-5.1) 4.3 mmol/L 09/07/24 Chloride, (96-108) 103 mmol/L 09/07/24 Carbon Dioxide, (22-29) 26 mmol/L 09/07/24 BUN, (9-16) 25 mg/dL H 09/07/24 Creatinine, (0.5-1.4) 1.59 mg/dL H 09/07/24 Calcium, (8.4-10.2) 9.1 mg/dL Δ 05/31/24 Urine Creatinine 114.98 mg/dL 05/31/24 Protein/Creatinin Ratio, (<0.2) 0.38 H 05/31/24 Renal US 08/17/23 Assessment & Plan Assessment & Plan (1) Hypertension: Code(s): I10 - Essential (primary) hypertension Category: Medical Qualifiers: Hypertension type: primary hypertension Qualified Code(s): I10 - Essential (primary) hypertension (2) CKD stage 3 secondary to diabetes: Code(s): E11.22 - Type 2 diabetes mellitus with diabetic chronic kidney disease; N18.30 - Chronic kidney disease, stage 3 unspecified Category: Medical (3) Proteinuria: Code(s): R80.9 - Proteinuria, unspecified Category: Medical Qualifiers: Proteinuria type: other Qualified Code(s): R80.8 - Other proteinuria Plan Bea has proteinuria from diabetic nephropathy given she has proliferative retinopathy, neuropathy and long standing diabetes. I started her on 10 mg Jardiance which I planned to increase to 25 mg with time ( she is not sure whether she is taking it at all- I asked her to bring all her medications for review). She is on ACEI. Her renal imaging was unremarkable in the past. She can continue lasix 20 mg every day. Her proteinuria is better. Answered all questions. Orders: Orders Creatinine 3 Months E11.22 - Type 2 diabetes mellitus with diabetic chronic kidney disease, I10 - Essential (primary) hypertension, N18.30 - Chronic kidney disease, stage 3 unspecified, R80.8 - Other proteinuria Calcium 3 Months E11.22 - Type 2 diabetes mellitus with diabetic chronic kidney disease, I10 - Essential (primary) hypertension, N18.30 - Chronic kidney disease, stage 3 unspecified, R80.8 - Other proteinuria Blood Urea Nitrogen 3 Months E11.22 - Type 2 diabetes mellitus with diabetic chronic kidney disease, I10 - Essential (primary) hypertension, N18.30 - Chronic kidney disease, stage 3 unspecified, R80.8 - Other proteinuria Electrolytes 3 Months E11. - Type 2 diabetes mellitus with diabetic chronic kidney disease, I10 - Essential (primary) hypertension, N18.30 - Chronic kidney disease, stage 3 unspecified, R80.8 - Other proteinuria Protein Creatinine Ratio, Ur 3 Months E11.22 - Type 2 diabetes mellitus with diabetic chronic kidney disease, I10 - Essential (primary) hypertension, N18.30 - Chronic kidney disease, stage 3 unspecified, R80.8 - Other proteinuria Coding Level of Care Code Est Pt Level 4 (57386) Diagnoses Primary hypertension I10 Hypertension type: primary hypertension CKD stage 3 secondary to diabetes .; N18.30 Other proteinuria R80.8 Proteinuria type: other
[2024-10-14 11:49] VITALS: BP 130/60; PULSE 55; O2SAT 97; BMI 27.8
== END 2024-10-14 12:06 | disposition home or self-care (01) ==
LOC: HO.HKA 11:35
PROVIDERS: PCP Internal Medicine; Visit Provider Internal Medicine Nephrology
DX: I10 Essential (primary) hypertension (principal); E11.22 Type 2 diabetes mellitus with diabetic chronic kidney disease; N18.30 Chronic kidney disease, stage 3 unspecified; R80.8 Other proteinuria
CPT/HCPCS: 99214

== ENCOUNTER → 2024-10-14 11:34 | Outpatient (BNVA) | payer MEDICARE, MEDICAID, SELFPAY | PROVIDERS: PCP Internal Medicine; Visit Provider Internal Medicine Nephrology | DX: E11.22 Type 2 diabetes mellitus with diabetic chronic kidney disease (principal); I12.9 Hypertensive chronic kidney disease with stage 1 through stage 4 chronic kidney disease, or unspecified chronic kidney disease; N18.30 Chronic kidney disease, stage 3 unspecified; R80.8 Other proteinuria | CPT/HCPCS: 99212 ==

== ENCOUNTER 2025-01-23 08:26 | Outpatient (REF) | payer MEDICARE, MEDICAID, SELFPAY ==
[2025-01-23 10:45] LABS: Anion Gap 8 (12-20); Blood Urea Nitrogen 20 mg/dL (9-16); Calcium 9.2 mg/dL (8.4-10.2); Carbon Dioxide 31 mmol/L (22-29); Chloride 107 mmol/L (96-108); Estimated Glomerular Filt Rate 34; Potassium 4.4 mmol/L (3.3-5.1); Sodium 142 mmol/L (135-145)
[2025-01-23 11:07] LABS: Protein/Creatinine Ratio, Ur 0.43 (<0.2); Total Protein Urine Random 20 mg/dL (<12)
== END 2025-01-23 08:27 | disposition home or self-care (01) ==
LOC: HO.HMGCLDS 08:26
PROVIDERS: Visit Provider Internal Medicine Nephrology
DX: E11.22 Type 2 diabetes mellitus with diabetic chronic kidney disease (principal); I12.9 Hypertensive chronic kidney disease with stage 1 through stage 4 chronic kidney disease, or unspecified chronic kidney disease; N18.30 Chronic kidney disease, stage 3 unspecified; R80.8 Other proteinuria
CPT/HCPCS: 36415; 80051; 82310; 82565; 82570; 84156; 84520

== ENCOUNTER 2025-01-25 11:48 | Outpatient (AMB) | payer MEDICARE, MEDICAID, SELFPAY ==
--- NOTE | 2025-01-25 11:57 | HO.NEPHOV_ITS ---
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 She is 79 years of age and has longstanding diabetes with proliferative diabetic retinopathy, neuropathy and proteinuria. Her blood sugar control is remarkably better. She is hypertensive and is on multiple antihypertensive medications. She has history of breast cancer and had undergone surgery long time ago. She has no weight loss, hematuria, shortness of breath, paroxysmal nocturnal dyspnea, orthopnea, orthostatic symptoms. She has no new skin rashes, photosensitivity, epistaxis, recurrent sinusitis, recent sore throat, history of recent new antibiotic intake or excessive anti- inflammatories. She has no history of any hearing deficits. She has not been taking Jardiance. She was accompanied by her partner Daniel during this visit. [facility] Medical History (Updated 01/25/25 @ 13:08 by Aj Todd MD) Psoriasis Peripheral neuropathy Mastodynia Hypertension Hypercholesterolemia Diabetes mellitus Diabetic retinopathy Chronic renal insufficiency Cataract Breast cancer Surgical History History of modified radical mastectomy of left breast H/O colonoscopy Social History Alcohol intake: never Patient Tobacco Use Status: Never used Tobacco Review of Systems Const All systems reviewed & are unremarkable except as noted in HPI and below Physical Exam Vital Signs: Last Vital Signs Pulse 65 01/25/25 12:01 BP 140/70 H 01/25/25 12:01 Pulse Ox 97 01/25/25 12:01 Oxygen Delivery Method Room Air 01/25/25 12:01 BMI result Body Mass Index 27.8 Const General: comfortable and no acute distress Orientation/consciousness: patient oriented x3 HEENT Head: Yes normocephalic Mouth: Normal oral and palatal mucosa present Eyes EOM: EOMs intact bilaterally Neck Neck: Yes supple Resp Auscultation: clear to auscultation bilaterally Cardio Jugular venous distension: no JVD Rate: regular rate GI Palpation (GI): Soft to palpation Auscultation: normal bowel sounds General: Yes no CVA tenderness Back/Spine/Pelvis Back: no CVA tenderness Skin General skin exam: no rashes or lesions noted Neuro General: patient oriented x3 and moves all extremities Extrem General: Yes no pedal edema Results Reviewed Nephrology Results: Sodium, (135-145) 142 mmol/L 01/23/25 Potassium, (3.3-5.1) 4.4 mmol/L 01/23/25 Chloride, (96-108) 107 mmol/L 01/23/25 Carbon Dioxide, (22-29) 31 mmol/L H 01/23/25 BUN, (9-16) 20 mg/dL H 01/23/25 Creatinine, (0.5-1.4) 1.47 mg/dL H 01/23/25 Calcium, (8.4-10.2) 9.2 mg/dL 01/23/25 Urine Creatinine 46.28 mg/dL 01/23/25 Protein/Creatinin Ratio, (<0.2) 0.43 H 01/23/25 Renal US 08/17/23 Assessment & Plan Assessment & Plan (1) Hypertension: Code(s): I10 - Essential (primary) hypertension Category: Medical Qualifiers: Hypertension type: primary hypertension Qualified Code(s): I10 - Essential (primary) hypertension (2) CKD stage 3 secondary to diabetes: Code(s): E11.22 - Type 2 diabetes mellitus with diabetic chronic kidney disease; N18.30 - Chronic kidney disease, stage 3 unspecified Category: Medical (3) Diabetic nephropathy: Code(s): E11.21 - Type 2 diabetes mellitus with diabetic nephropathy Category: Medical Qualifiers: Diabetes mellitus type: type 2 Qualified Code(s): E11.21 - Type 2 diabetes mellitus with diabetic nephropathy Plan Bea has proteinuria from diabetic nephropathy given she has proliferative retinopathy, neuropathy and long standing diabetes. I started her on 10 mg Jardiance which I planned to increase to 25 mg with time. She is on ACEI. Her renal imaging was unremarkable in the past. She can continue lasix 20 mg every day. Her proteinuria and renal functions are stable. F/U labs ordered. Answered all questions. Orders: Orders Electrolytes 3 Months E11.21 - Type 2 diabetes mellitus with diabetic nephropathy, E11.22 - Type 2 diabetes mellitus with diabetic chronic kidney disease, I10 - Essential (primary) hypertension, N18.30 - Chronic kidney disease, stage 3 unspecified Protein Creatinine Ratio, Ur 3 Months E11.21 - Type 2 diabetes mellitus with diabetic nephropathy, E11.22 - Type 2 diabetes mellitus with diabetic chronic kidney disease, I10 - Essential (primary) hypertension, N18.30 - Chronic kidney disease, stage 3 unspecified Hemoglobin A1c 3 Months E11.21 - Type 2 diabetes mellitus with diabetic nephropathy, E11.22 - Type 2 diabetes mellitus with diabetic chronic kidney disease, I10 - Essential (primary) hypertension, N18.30 - Chronic kidney disease, stage 3 unspecified Creatinine 3 Months E11.21 - Type 2 diabetes mellitus with diabetic nephropathy, E11.22 - Type 2 diabetes mellitus with diabetic chronic kidney disease, I10 - Essential (primary) hypertension, N18.30 - Chronic kidney disease, stage 3 unspecified Blood Urea Nitrogen 3 Months E11.21 - Type 2 diabetes mellitus with diabetic nephropathy, E11.22 - Type 2 diabetes mellitus with diabetic chronic kidney disease, I10 - Essential (primary) hypertension, N18.30 - Chronic kidney disease, stage 3 unspecified Medications: Refilled empagliflozin (Jardiance) 10 mg PO DAILY 90 tabs 6RF Coding Level of Care Code Est Pt Level 4 (50561) Diagnoses Primary hypertension I10 Hypertension type: primary hypertension CKD stage 3 secondary to diabetes E11.22; N18.30 Diabetic nephropathy associated with type 2 diabetes mellitus E11.21 Diabetes mellitus type: type 2
[2025-01-25 12:01] VITALS: BP 140/70; PULSE 65; O2SAT 97; BMI 27.8
== END 2025-01-25 12:24 | disposition home or self-care (01) ==
LOC: HO.HKA 11:49
PROVIDERS: PCP Internal Medicine; Visit Provider Internal Medicine Nephrology
DX: I10 Essential (primary) hypertension (principal); E11.22 Type 2 diabetes mellitus with diabetic chronic kidney disease; N18.30 Chronic kidney disease, stage 3 unspecified; E11.21 Type 2 diabetes mellitus with diabetic nephropathy
CPT/HCPCS: 99214

== ENCOUNTER → 2025-01-25 11:48 | Outpatient (BNVA) | payer MEDICARE, MEDICAID, SELFPAY | PROVIDERS: PCP Internal Medicine; Visit Provider Internal Medicine Nephrology | DX: E11.21 Type 2 diabetes mellitus with diabetic nephropathy (principal); E11.22 Type 2 diabetes mellitus with diabetic chronic kidney disease; N18.30 Chronic kidney disease, stage 3 unspecified; I10 Essential (primary) hypertension | CPT/HCPCS: 99212 ==

== ENCOUNTER 2025-04-25 10:18 | Outpatient (REF) | payer MEDICARE, MEDICAID, SELFPAY ==
[2025-04-25 14:32] LABS: Anion Gap 11 (12-20); Blood Urea Nitrogen 29 mg/dL (9-16); Carbon Dioxide 28 mmol/L (22-29); Chloride 106 mmol/L (96-108); Estimated Glomerular Filt Rate 30; Potassium 3.9 mmol/L (3.3-5.1); Sodium 141 mmol/L (135-145)
[2025-04-25 15:09] LABS: Total Protein Urine Random < 7 mg/dL (<12)
== END 2025-04-25 10:19 | disposition home or self-care (01) ==
LOC: HO.HMGCLDS 10:18
PROVIDERS: PCP Internal Medicine; Visit Provider Internal Medicine Nephrology
DX: E11.22 Type 2 diabetes mellitus with diabetic chronic kidney disease (principal); I12.9 Hypertensive chronic kidney disease with stage 1 through stage 4 chronic kidney disease, or unspecified chronic kidney disease; N18.30 Chronic kidney disease, stage 3 unspecified
CPT/HCPCS: 36415; 80051; 82565; 82570; 83036; 84156; 84520